=== PATIENT | female | born 1980 | race Caucasian/White ===

== ENCOUNTER 2017-10-25 12:44 | Emergency (ER) | payer BC, SELFPAY ==
[2017-10-25] VITALS (21 sets, daily range): BP systolic 103–128; BP diastolic 62–87; PULSE 82–111; RESP 17–28; TEMP 36.9–38.6; O2SAT 95–98
--- NOTE | 2017-10-25 12:59 | ED.GENADUL ---
Disposition Clinical Impression: Community acquired bacterial pneumonia, Cough, Pulmonary nodule Disposition: HOME Condition: Good Instructions: Community Acquired Pneumonia (ED), Acute Cough (ED) Additional Instructions: Please take your antibiotic as directed. Please drink 8-10 cups of water per day. If you notice any worsening of your symptoms, or any new symptoms such as vomiting, diarrhea, fever, chills, shortness of breath, chest pain, numbness, weakness, or fainting , please return immediately to the emergency department for reevaluation. Please follow up with your primary care provider as soon as possible for reassessment and reevaluation. As always, it was a pleasure participating in your medical care today. Please follow-up with your primary care provider in the next 6-8 weeks to get a repeat chest x-ray for the nodule in your left chest. Prescriptions: Azithromycin 250 mg PO DAILY #4 tablet Referrals: Santiago Johnson MD [Primary Care Provider] - Medical Decision Making - Medical Decision Making This is a 37-year-old female with a past medical history of occasional asthma, and hypothyroidism who presents for 1 day of fevers, chills, cough. She has systemic body aches. Physical exam demonstrates crackles in the left lower lung harvey. She is mildly tachycardic with a fever. She does have a little bit of a sore throat, but no severe erythema, or tonsillar exudate. We will evaluate for flu, and strep. The patient has no risk factors for pulmonary embolism. She is low risk on well's score. We will rehydrate, evaluate for infectious etiologies, and reassess. Patient is worried about her family's cardiac history, however she is low risk on the heart score with only a risk factor of mild obesity and family history, but no smoking history, or other cardiac risk factors. EKG 12: 58 Rate 99, RI 124, QTc 444, QRS 83, sinus rhythm, no ST elevations or depressions. No T wave inversions. No Q waves. 3: 20 p.m. I have been contacted by the radiologist, he does feel that there is a small nodule in the left lower lung. This could be infectious in etiology, but does require follow-up on a repeat 3-6 week x-ray. He would correlate well with an infectious etiology with the patient's fever, cough, and sore throat. I do feel that she would benefit from antibiotics. She has been given azithromycin here in the emergency department, and will be given azithromycin for home use. I had a long discussion regarding red flags, patient understands. I have extensively reviewed the treatment plan and discharge instructions with the patient. I have addressed all patient concerns at this time. The patient was made aware of what symptoms to monitor for that would warrant a return to the emergency department. Discussed the plan with the patient, they demonstrate verbal understanding and agreement with our assessment and plan at this time. History of Present Illness - General Chief complaint: Chest Pain Stated complaint: SORE THROAT Time Seen by Provider: 10/25/17 12:57 - History of Present Illness Initial comments: A 37-year-old female with a past medical history of asthma, and hypothyroidism who presents today for evaluation of fevers, chills, and cough starting yesterday. She states that she felt subjectively warm at home, has had a cough that is nonproductive, and his general malaise, and systemic body aches. She denies any headache, neck pain, vision changes, significant pleuritic chest pain, vomiting, diarrhea, rash, other sick contacts. She denies any exertional chest pain, neck pain or shoulder pain or arm pain. She states that there is no aggravating or relieving factors at this time. She is not on control. She does admit to surgery on her right elbow 30 years ago. Denies PE risk factors such as recent long car rides, immobilization, recent surgery, prior history of DVT or PE, family history of PE or DVT, morbid obesity, exogenous estrogen and smoking, hemoptysis, history of cancer. Patient has no other complaints at this time. She denies any tobacco or IV illicit drug use. Family history is positive for heart disease in the mid 40s. - Related Data Albuterol Sulfate [Albuterol Sulfate Hfa] 8.5 gm IH PRN 12/23/13 Levothyroxine Sodium 137 mcg PO DAILY 12/23/13 Norgestimate-Ethinyl Estradiol [Ortho Tri-Cyclen 28 Tablet] 1 tab PO DAILY 12/23/13 Budesonide/Formoterol Fumarate [Symbicort 160/4.5 Mcg Inhaler] 1 puff IH BID 05/17/14 Acetaminophen [Tylenol Extra Strength] 500 mg PO PRN PRN 06/23/15 Amphet Asp/Amphet/D-Amphet [Adderall Xr 20MG Capsule SA] 20 mg PO DAILY 09/02/16 Doxycycline [Vibramycin] 100 mg PO BID #28 cap 09/02/16 Lisdexamfetamine [Vyvanse] 50 mg PO DAILY 10/25/16 Phenazopyridine [Pyridium] 200 mg PO Q8H PRN #6 tab 10/25/16 Sulfameth/Trimeth Ds [Bactrim Ds Tablet] 1 each PO BID #6 tab 10/25/16 PredniSONE [Deltasone] 0 PO DAILY #24 tab-cap 09/10/17 Azithromycin 250 mg PO DAILY #4 tablet 10/25/17 Allergies Allergy/AdvReac Type Severity Reaction Status Date / Time poison lula extract Allergy Mild Anaphylaxsi Unverified 10/25/16 19:37 [Poison Lula Extract] s Review of Systems Other: 10 point review of systems was performed, pertinent positives and negatives are noted in the history of present illness. Past Medical History - Past Medical History Medical history: asthma hypothyroid Surgical history: non-contributory - Social History Alcohol use: occasionally Drug use: none General Exam - Other Other exam information: 1.Const: Well-nourished, Well-developed, appearing stated age 2.Eyes: PERRL, no conjunctival injection, and symmetrical lids. 3.ENT: Atraumatic external nose and ears. Moist MM. Neck: Symmetric, trachea midline, No thyromegaly. Minimal erythema in the posterior oropharynx. No tonsillar exudates. No significant cervical lymphadenopathy. 4.CVS: Tachycardia, +S1/S2, No murmurs or gallops. Peripheral pulses 2+ and equal in all extremities. Brisk capillary refill in all extremities. 5.RESP: Unlabored respiratory effort. No significant wheezes. Mild crackles in left lower lung harvey. No signs of respiratory distress. 6.GI: Soft, Nontender/Nondistended, No hepatosplenomegaly. No guarding or rebound. 7.MSK: Normocephalic/Atraumatic, Extremities w/o deformity or ttp No cyanosis or clubbing, Normal movement of all extremities. No calf tenderness. No unilateral or bilateral lower extremity swelling. 8.Skin: Warm, Dry. No rashes or lesions. 9.Neuro: household refrigerator mechanic II-XII grossly intact. Sensation grossly intact, no focal neurologic deficits. 10.Psych: (AAO) x3. Appropriate mood and affect Course Vital Signs - 24 hr 10/25/17 12:51 Temperature 38.6 C H Pulse 111 H Respiratory 20 Rate Blood Pressure 128/87 Pulse Oximetry 95
[2017-10-25 13:22] LABS: Abs Immature Grans 0.02 k/cumm (0.0-0.09); Absolute Basophil Count 0.02 k/cumm (0.0-0.2); Absolute Eosinophil Count 0.03 k/cumm (0.0-0.7); Absolute Lymphocyte Count 1.35 k/cumm (1.2-3.4); Absolute Monocyte Count 0.75 k/cumm (0.11-0.7); Absolute Neutrophil Count 6.12 k/cumm (1.2-6.7); Basophils % 0.2; Eosinophils % 0.4; HCT 41.1 % (36.0-46.0); HGB 13.7 g/dL (12.0-15.5); Immature Grans % 0.2; Lymphocytes % 16.3; Mean Corp. HGB Concentration 33.3 g/dL (32.0-36.0); Mean Corpuscular Hemoglobin 29.4 pg (27.0-33.0); Mean Corpuscular Volume 88.2 fL (80-95); Mean Platelet Volume 10.3 fL (8.0-11.0); Neutrophils % 73.9; Platelet Count 220 x1000/uL (130-400); RBC 4.66 m/cumm (4.00-5.20); RBC Distribution Width 13.2 % (11.7-14.6); White Blood Cell Count 8.29 k/cumm (4.4-10.8)
[2017-10-25 13:27] LABS: Lactate-non-spesis 1.8 mmol/L (0.6-1.4)
[2017-10-25] MEDS: Acetaminophen 500 MG TAB 1000 MG PO (13:30)
[2017-10-25] MEDS: Ketorolac 30 MG/ML VIAL IVP (13:31)
[2017-10-25 13:34] LABS: Bilirubin Negative (Negative); Blood Small (Negative); Clarity Clear; Glucose Negative (Negative); Ketones Negative (Negative); Leukocyte Esterase Trace (Negative); Nitrite Negative (Negative); Urobilinogen 0.2 EU/dL (Up TO 0.2)
[2017-10-25 13:44] LABS: ALT 35 U/L (12-78); AST 21 U/L (15-37); Albumin 3.6 g/dL (3.4-5.0); Alkaline Phosphatase 119 U/L (46-116); Anion Gap 9.7 mmol/L (3-11); BUN 8 mg/dL (7-18); Bilirubin, Total 0.4 mg/dL (0.2-1.0); CO2 25.3 mmol/L (21.0-32.0); CREATININE 0.74 mg/dL (0.55-1.02); Calcium 8.5 mg/dL (8.5-10.1); Chloride 99 mmol/L (98-107); Glucose 103 mg/dL (70-100); Potassium 3.2 mmol/L (3.5-5.1); Sodium 134 mmol/L (136-145); Total Protein 8.2 g/dL (6.4-8.2); Troponin I < 0.02 ng/mL (0.00-0.06)
[2017-10-25 13:44] LABS: Bacteria Moderate HPF (Negative); C & S Indicated? No/Sq. Contamination; Casts Negative LPF (Negative); Crystals Negative HPF (Negative); Epithelial Cells Moderate HPF (Negative); Mucus Moderate (Negative); RBC 0-2 (0-2)
--- NOTE | 2017-10-25 13:47 | DI.REPORT_ITS ---
SYMPTOM/DIAGNOSIS: CHEST PAIN PA AND LATERAL CHEST: A small region of increased density is projected beneath the left hilum and likely lies in the left lower lobe. This density could represent scarring or atelectasis, however, the possibility of a small pulmonary mass could not be excluded and further evaluation with chest CT is suggested. The lungs are otherwise unremarkable. The heart is not enlarged. Hilar vasculature, tracheal air column and mediastinum are intact. SUMMARY: A small region of atelectasis, scarring or possibly a small mass is identified in the left lung. Further evaluation with chest CT is suggested.
[2017-10-25 13:53] LABS: TSH 0.22 uIU/mL (0.358-3.74)
[2017-10-25] MEDS: Normal Saline 1,000 ML 1000 ML IV (14:59)
[2017-10-25] MEDS: AZITHROMYCIN 500 MG in Normal Saline 250 ML 250 MG IVPB (14:59)
[2017-10-25] MEDS: Potassium Chloride 20 MEQ TABCR 40 MEQ PO (15:07)
== END 2017-10-25 16:14 | disposition home or self-care (01) ==
PROVIDERS: Emergency Provider Student in an Organized Health Care Education/Training Program; PCP General Practice
DX: J15.9 Unspecified bacterial pneumonia (principal); R91.1 Solitary pulmonary nodule; R00.2 Palpitations; J02.9 Acute pharyngitis, unspecified; Z82.49 Family history of ischemic heart disease and other diseases of the circulatory system
CPT/HCPCS: 36415; 80053; 87040; 87449; 87880; 99285; 71046; 81003; 81015; 83605; 84443; 84484; 85025; J0456; J1885

== ENCOUNTER 2017-10-27 10:32 | Outpatient (CLI) | payer BC, SELFPAY ==
[2017-10-27 11:14] LABS: HCT 39.2 % (36.0-46.0); HGB 12.9 g/dL (12.0-15.5); Mean Corp. HGB Concentration 32.9 g/dL (32.0-36.0); Mean Corpuscular Volume 88.1 fL (80-95); Mean Platelet Volume 10.3 fL (8.0-11.0); Platelet Count 208 x1000/uL (130-400); RBC 4.45 m/cumm (4.00-5.20); White Blood Cell Count 5.92 k/cumm (4.4-10.8)
[2017-10-27 11:40] LABS: Potassium 4.1 mmol/L (3.5-5.1)
[2017-10-27 11:52] LABS: HCG Quant, Pregnancy < 1 mIU/mL (1-3)
--- NOTE | 2017-10-27 12:10 | DI.REPORT_ITS ---
SYMPTOM/DIAGNOSIS: DECREASED APPETITE, WEIGHT LOSS, R/O PNEUMONIA, MASS CHEST X-RAY: PA, lateral. Comparison 10/25/17 The infiltrate seen in the left lower lobe has progressed since the prior examination. The findings are suspicious for pneumonia. The lungs are otherwise clear. No effusions or pneumothoraces are identified. Heart size and pulmonary vasculature are within normal limits. The bones are intact. IMPRESSION: Worsening left lower lobe pneumonia. A chest x-ray is recommended following treatment to document complete resolution of the infiltrate.
== END 2017-10-27 10:33 ==
PROVIDERS: PCP General Practice; Visit Provider General Practice
DX: J18.9 Pneumonia, unspecified organism (principal); R63.4 Abnormal weight loss; R63.0 Anorexia; R50.9 Fever, unspecified; E87.6 Hypokalemia
CPT/HCPCS: 36415; 85027; 71046; 84132; 84702

== ENCOUNTER 2018-02-22 16:57 | Outpatient (CLI) | payer BC, SELFPAY ==
[2018-02-23 12:18] LABS: HCG Quant, Pregnancy < 1 mIU/mL (1-3); TSH 0.63 uIU/mL (0.358-3.74)
== END 2018-02-22 17:17 ==
PROVIDERS: PCP General Practice; Visit Provider General Practice
DX: Z32.00 Encounter for pregnancy test, result unknown (principal)
CPT/HCPCS: 84443; 84702

== ENCOUNTER 2018-03-01 14:30 | Outpatient (CLI) | payer BC, SELFPAY ==
[2018-03-01 16:04] LABS: HCG Quant, Pregnancy < 1 mIU/mL (1-3)
== END 2018-03-01 14:50 ==
PROVIDERS: PCP General Practice; Visit Provider Nurse Practitioner Women's Health
DX: N91.2 Amenorrhea, unspecified (principal)
CPT/HCPCS: 36415; 84702

== ENCOUNTER 2018-12-03 18:30 | Outpatient (REF) | payer BC, SELFPAY | END 2018-12-03 18:50 | LOC: LBN 18:30 | PROVIDERS: PCP General Practice; Visit Provider General Practice | DX: N39.0 Urinary tract infection, site not specified (principal) | CPT/HCPCS: 87086 ==

== ENCOUNTER 2019-01-14 15:32 | Outpatient (CLI) | payer BC, SELFPAY ==
[2019-01-14 15:51] LABS: HCT 39.2 % (36.0-46.0); HGB 12.9 g/dL (12.0-15.5); Mean Corp. HGB Concentration 32.9 g/dL (32.0-36.0); Mean Corpuscular Hemoglobin 29.5 pg (27.0-33.0); Mean Corpuscular Volume 89.5 fL (80-95); Mean Platelet Volume 10.4 fL (8.0-11.0); Platelet Count 326 x1000/uL (130-400); RBC 4.38 m/cumm (4.00-5.20); RBC Distribution Width 13.3 % (11.7-14.6); White Blood Cell Count 9.12 k/cumm (4.4-10.8)
[2019-01-14 16:46] LABS: TSH 0.71 uIU/mL (0.36-3.74)
== END 2019-01-14 15:52 ==
PROVIDERS: PCP General Practice; Visit Provider General Practice
DX: R53.83 Other fatigue (principal); R50.9 Fever, unspecified; E03.9 Hypothyroidism, unspecified
CPT/HCPCS: 36415; 85027; 84443

== ENCOUNTER 2019-04-12 15:12 | Outpatient (CLI) | payer BC, SELFPAY ==
[2019-04-12 17:56] LABS: HCG Quant, Pregnancy 2804 mIU/mL (1-3)
[2019-04-14 18:01] LABS: Progesterone 8.8 ng/mL (See Table)
== END 2019-04-12 15:32 ==
PROVIDERS: PCP Nurse Practitioner; Visit Provider Obstetrics & Gynecology
DX: O20.0 Threatened abortion (principal)
CPT/HCPCS: 36415; 84144; 84702

== ENCOUNTER 2019-04-30 02:16 | Outpatient (CLI) | payer BC, SELFPAY ==
[2019-04-30 14:26] LABS: Calculated LDL 134 mg/dL (<100); Cholesterol 203 mg/dL (<200); HDL Cholesterol 53 mg/dL (40-60); Triglyceride 80 mg/dL (<150)
== END 2019-04-30 02:36 ==
PROVIDERS: PCP Nurse Practitioner; Visit Provider Nurse Practitioner
DX: Z13.6 Encounter for screening for cardiovascular disorders (principal)
CPT/HCPCS: 36415; 80061

== ENCOUNTER 2019-06-03 15:47 | Outpatient (REF) | payer BC, SELFPAY | END 2019-06-03 16:07 | LOC: LBN 15:47 | PROVIDERS: PCP Nurse Practitioner; Visit Provider Internal Medicine | DX: J02.9 Acute pharyngitis, unspecified (principal) | CPT/HCPCS: 87070 ==

== ENCOUNTER 2020-12-15 03:46 | Outpatient (CLI) | payer BC, SELFPAY ==
[2020-12-15 13:23] LABS: Hemoglobin A1C 6.1 % (<5.7)
[2020-12-15 13:27] LABS: TSH 0.19 uIU/mL (0.36-3.74)
[2020-12-16 17:35] LABS: FREE T4 1.24 ng/dL (0.76-1.46)
== END 2020-12-15 03:47 | disposition home or self-care (01) ==
LOC: LOS 03:47
PROVIDERS: Nurse Practitioner Family; PCP Nurse Practitioner; Visit Provider Nurse Practitioner
DX: Z13.1 Encounter for screening for diabetes mellitus; E03.9 Hypothyroidism, unspecified
CPT/HCPCS: 36415; 83036; 84439; 84443

== ENCOUNTER → 2020-12-28 00:53 | Outpatient (CLI) | payer BC, SELFPAY ==
--- NOTE | 2020-12-28 06:45 | DI.RAD_ITS ---
Exam(s) RF BARIUM SWALLOW EXAM: RF BARIUM SWALLOW CLINICAL HISTORY: dysphagia,r13.10 TECHNIQUE: COMPARISON: CR CHEST 2 VIEWS PA,LAT from 10/27/2017 FINDINGS: Preliminary films of the chest and neck show no gross soft tissue abnormality of the tracheolaryngeal structures. Lungs are clear and well expanded. No pleural effusion. No cardiomegaly. Barium was ingested and showed grossly unremarkable hypo pharyngeal motility. Esophageal mucosa appe ars intact throughout, no evidence of obstruction. No focal lesion identified. IMPRESSION: Negative barium swallow. RADIATION DOSE DELIVERED: Total DLP
--- NOTE | 2020-12-28 06:45 | DI.MAMMO_ITS ---
Exam(s) MAMMO SCREENING EXAM: MAMMO SCREENING CLINICAL HISTORY: screening,z12.39 TECHNIQUE: Mammograms were interpreted according to the usual protocol including computer analysis w Gigabit Squared CAD system, tomosynthesis and C-view imaging. COMPARISON: FINDINGS: The breasts are heterogeneously dense. The patient is reportedly lactating. There is an area of vaguely masslike radiodensity measuring up to 4-5 cm in diameter in the upper out er quadrant of left breast. This may represent normal asymmetric breast tissue, however the possibil ity of fluid collection or mass is not excluded in this area. Additional evaluation with ultrasound of the left breast recommended. No additional mass or clumped microcalcification identified in either breast. Today's examination is a baseline examination. IMPRESSION: Additional evaluation of the left breast with an ultrasound targeted to the upper-outer quadrant is s uggested for evaluation of a vaguely masslike radiodensity seen on this baseline examination. BI-RADS Category 0 - Assessment Incomplete: Need additional imaging evaluation Breast Density - Category C - Heterogeneously dense
[2020-12-28] MEDS: Barium Sulfate 60% W/V 355 ML BTL PO (09:50)
== END ==
PROVIDERS: PCP Nurse Practitioner; Visit Provider Nurse Practitioner
DX: Z12.31 Encounter for screening mammogram for malignant neoplasm of breast (principal); R13.10 Dysphagia, unspecified; R92.8 Other abnormal and inconclusive findings on diagnostic imaging of breast
CPT/HCPCS: 77063; 77067; 74221

== ENCOUNTER 2021-04-08 14:01 | Outpatient (REF) | payer BC, SELFPAY ==
[2021-04-10 14:00] LABS: COVID-19 RT-PCR UVMMC Result Positive (Negative)
== END 2021-04-08 14:02 | disposition home or self-care (01) ==
LOC: LBN 14:01
PROVIDERS: PCP Nurse Practitioner; Visit Provider Nurse Practitioner Family
DX: Z20.822 Contact with and (suspected) exposure to COVID-19 (principal)
CPT/HCPCS: U0003

== ENCOUNTER 2021-06-09 01:39 | Outpatient (CLI) | payer BC, SELFPAY ==
[2021-06-09 11:40] LABS: Source Nasal/Nares
[2021-06-09 14:25] LABS: COVID-19 PCR Negative (Negative)
== END 2021-06-09 01:40 | disposition home or self-care (01) ==
LOC: LBO 01:39
PROVIDERS: PCP Nurse Practitioner; Visit Provider Surgery
DX: Z20.822 Contact with and (suspected) exposure to COVID-19 (principal)
CPT/HCPCS: 87635

== ENCOUNTER 2021-07-01 15:11 | Outpatient (REF) | payer BC, SELFPAY ==
[2021-07-03 10:51] LABS: COVID-19 RT-PCR UVMMC Result Negative (Negative)
== END 2021-07-01 15:12 | disposition home or self-care (01) ==
LOC: LBN 15:11
PROVIDERS: PCP Nurse Practitioner; Visit Provider Physician Assistant
DX: Z20.822 Contact with and (suspected) exposure to COVID-19 (principal)
CPT/HCPCS: U0003

== ENCOUNTER 2021-10-11 17:00 | Outpatient (REF) | payer OTHER, SELFPAY ==
[2021-10-11 20:45] LABS: Abs Immature Grans 0.05 10^3/uL (0.0-0.06); Absolute Basophil Count 0.05 10^3/uL (0.0-0.2); Absolute Eosinophil Count 0.32 10^3/uL (0.0-0.7); Absolute Lymphocyte Count 2.82 10^3/uL (1.2-3.4); Absolute Monocyte Count 0.96 10^3/uL (0.1-0.8); Absolute Neutrophil Count 3.96 10^3/uL (1.2-6.7); Basophils % 0.6; Eosinophils % 3.9; HCT 39.7 % (36.0-46.0); HGB 13.4 g/dL (11.2-15.7); Immature Grans % 0.6; Lymphocytes % 34.6; MCH 28.8 pg (27.0-33.0); MCHC 33.8 % (32.0-36.0); MCV 85 fL (80-95); MPV 11.1 fL (8.0-11.0); Monocytes % 11.8; Neutrophils % 48.5; Platelet Count 300 10^3/uL (130-400); RBC 4.66 10^6/uL (3.93-5.22); RDW 13.2 % (11.7-14.6); RDW-SD 41.7 fL; WBC 8.16 10^3/uL (4.4-10.8)
[2021-10-11 20:46] LABS: ESR 21 mm/hr (0-20)
[2021-10-11 21:06] LABS: ALT 41 U/L (14-59); AST 20 U/L (15-37); Albumin 3.8 g/dL (3.4-5.0); Alkaline Phosphatase 108 U/L (46-116); Anion Gap 7.5 mmol/L (3-11); BUN 15 mg/dL (7-18); Bilirubin, Total 0.5 mg/dL (0.2-1.0); C-Reactive Protein 1.24 mg/dL (0.0-0.3); CO2 26.5 mmol/L (21.0-32.0); CREATININE 0.7 mg/dL (0.55-1.02); Calcium 8.9 mg/dL (8.5-10.1); Chloride 103 mmol/L (98-107); Glucose 99 mg/dL (74-106); Potassium 4.2 mmol/L (3.5-5.1); Sodium 137 mmol/L (136-145); TSH (W/Ref FT4) 4.53 uIU/mL (0.36-3.74); Total Protein 7.2 g/dL (6.4-8.2)
[2021-10-11 21:36] LABS: FREE T4 1.11 ng/dL (0.76-1.46)
[2021-10-12 12:30] LABS: C Diff PCR Negative (Negative)
[2021-10-12 21:50] LABS: Campylobacter PCR Negative (Negative); Salmonella PCR Negative (Negative); Shiga Toxin PCR Negative (Negative); Shigella/Enteroinvasive Ecoli Negative (Negative)
== END 2021-10-11 17:01 | disposition home or self-care (01) ==
LOC: LBN 17:00
PROVIDERS: PCP Nurse Practitioner; Visit Provider Nurse Practitioner Family
DX: R19.7 Diarrhea, unspecified (principal)
CPT/HCPCS: 80053; 85652; 87493; 87505; 84439; 84443; 85025; 86140; 87177

== ENCOUNTER 2021-10-12 15:58 | Outpatient (REF) | payer BC, SELFPAY | END 2021-10-12 15:59 | disposition home or self-care (01) | LOC: LBN 15:58 | PROVIDERS: PCP Nurse Practitioner; Visit Provider Nurse Practitioner Family ==

== ENCOUNTER 2021-11-19 01:40 | Outpatient (CLI) | payer OTHER, SELFPAY ==
--- OUTSIDE RECORDS SUMMARY | 2021-11-19 01:42 | XMS_ITS | Encounter Summary ---
:1980 Author Organization [facility] Address [address] [place] [address] Care Team Providers Name Role Phone Unknown, Provider Primary Care Provider Encounter Details Date Type Department Care Team Description 10/12/2021 Lab Requisition [facility] Outr Resulting Lab, Pathology & Laboratory Provider [facility] [address] [place] [address] Social History Tobacco Use Types Packs/Day Years Used Date Never Assessed Sex Assigned at Date Recorded Not on file documented as of this encounter Plan of Treatment Not on filedocumented as of this encounter Procedures Procedure Name Priority Date/Time Associated Diagnosis Comme nts OVA/PARASITE EXAM Routine 10/11/2021 19:20 Result s for this EDT procedure are i n the results section. documented in this encounter Results OVA/PARASITE EXAM (10/11/2021 19:20 EDT) Pathologist Sig nature Parasite No ova and parasites [facility] seen. LABORATORY SERVICES Specimen Feces - Specimen from rectum (specimen) Narrative [facility] - 10/13/2021 12:51 EDT (If Cryptosporidium, Cyclospora, or Micr osporidium are suspected, specific tests must be requested.) Single negative specimen does not rule out the possibility of a parasitic infection. Performing Organization Address City/State/ZIP Code Phon e Number [facility] [address] [place] [address] SERVICES documented in this encounter Visit Diagnoses Not on filedocumented in this encounter Care Teams Nurse Reviewer Relationship Specialty Start Date End Date Unknown, Provider, PCP - General 04/21/14 documented as of this encounter
--- OUTSIDE RECORDS SUMMARY | 2021-11-19 01:42 | XMS_ITS | Encounter Summary ---
:1980 Author Organization [facility] Address [address] [place] [address] Care Team Providers Name Role Phone Unknown, Provider Primary Care Provider Encounter Details Date Type Department Care Team Description 10/12/2021 Lab Requisition [facility] Outr Resulting Lab, Pathology & Laboratory Provider [facility] [address] [place] [address] Social History Tobacco Use Types Packs/Day Years Used Date Never Assessed Sex Assigned at Date Recorded Not on file documented as of this encounter Plan of Treatment Not on filedocumented as of this encounter Procedures Procedure Name Priority Date/Time Associated Diagnosis Comme nts FECAL BACTERIAL Routine 10/11/2021 16:25 Results for this PATHOGENS BY PCR EDT procedure a re in the results section. documented in this encounter Results FECAL BACTERIAL PATHOGENS BY PCR (10/11/2021 16:25 EDT) Pathologist Sig nature Salmonella PCR Negative Negative [facility] Shigella/Enteroinvasive Negative Negative [facility] LAB CAMPYLOBACTER PCR Negative Negative [facility] Shiga Toxin PCR Negative Negative [facility] Specimen Feces - Specimen from rectum (specimen) Performing Organization Address City/State/ZIP Code Phon e Number [facility] [address] [place] [address] SERVICES documented in this encounter Visit Diagnoses Not on filedocumented in this encounter Care Teams Aircrewman Relationship Specialty Start Date End Date Unknown, Provider, PCP - General 04/21/14 documented as of this encounter
--- OUTSIDE RECORDS SUMMARY | 2021-11-19 01:43 | XMS_ITS | Encounter Summary ---
:1980 Author Organization [facility] Address [address] [place] [address] Care Team Providers Name Role Phone Unknown, Provider Primary Care Provider Encounter Details Date Type Department Care Team Description 04/16/2014 Results Only [facility] Martine Curry, GUEST RELATIONS AGENT [phone] [address] [facility] GAUDENCIO,[place], [place] [address] (Wo rk) Social History Tobacco Use Types Packs/Day Years Used Date Never Assessed Sex Assigned at Date Recorded Not on file documented as of this encounter Plan of Treatment Not on filedocumented as of this encounter Procedures Procedure Name Priority Date/Time Associated Diagnosis Comme nts PAP TEST- RESULT Routine 04/16/2014 0:00 EST Resu lts for this ONLY procedure are i n the results section. documented in this encounter Results PAP TEST- RESULT ONLY (04/16/2014 0:00 EST) Pathology Report: CYTOPATHOLOGY REPORT [facility] Reports generated via electronic interface contain sendy ginal data; SERVICES however they are lacking the format of the original re port. Caution should be taken when reading/interpreting unfo rmatted reports. Name: ? STEFANI SPICER ? Accession #: ? [id number] ? : ? 1980 (Age: 33) ??F ?Collect Da te: ? 04/16/2014 ? Location: ? [facility] ? Receive Date: ? 015 ? Provider: MARTINE CURRY GUEST RELATIONS AGENT Copy to: JOSE GUERRERO ? Final Report SPECIMEN ADEQUACY ? Satisfactory for Evaluation - transformation zone component present GENERAL CATEGORIZATION ? Negative for Intraepithelial Lesion or Malignan cy INTERPRETATION ? Reactive cellular ricky nges associated with inflammation present (includes repair). Hormonal/Contraceptive status: Yes Specimen/Source: ??Pap Test, Cervix/Endocervix, ThinPr ep Imaging System with manual evaluation Document reviewed and electronically signed by: ? CHRISTINA BANDA MD ? Report ??Date: 05/01/2014 14:42 HPV with Pap Test ? Date Ordered: ? 05/01/2014 ? Status: ?? Signed Out ?Date Complete: ? 05/02/2014 ? By: ??S ystem Interface ? Date Reported: ? 05/02/2014 ? Interpretation RESULT: Negative for HPV. No E6 or E7 mRNA is detected from HPV types 16,18,31,3 3,35, 39,45,51,52,56,58,59,66, and 68 by office automation technician media martine amplification. Comments Document reviewed and electronically signed by: ? System Interface ? Report date: 05/02/2014 By the signature above, the attending physician certif ies that he/she has personally conducted a gross and/or microscopic examin ation of the described specimens and rendered or confirmed the above diagnosi s. End of Report Specimen Performing Organization Address City/State/ZIP Code Phon e Number [facility] [address] [place] [address] SERVICES documented in this encounter Visit Diagnoses Not on filedocumented in this encounter Care Teams Ndt Inspector Relationship Specialty Start Date End Date Unknown, Provider, PCP - General 04/21/14 documented as of this encounter
--- OUTSIDE RECORDS SUMMARY | 2021-11-19 01:43 | XMS_ITS | Encounter Summary ---
:1980 Author Organization [facility] Address [address] [place] [address] Care Team Providers Name Role Phone Unknown, Provider Primary Care Provider Encounter Details Date Type Department Care Team Description 04/09/2021 Lab Requisition [facility] Outr Resulting Lab, Pathology & Laboratory Provider [facility] [address] [place] [address] Social History Tobacco Use Types Packs/Day Years Used Date Never Assessed Sex Assigned at Date Recorded Not on file documented as of this encounter Plan of Treatment Not on filedocumented as of this encounter Procedures Procedure Name Priority Date/Time Associated Diagnosis Comme nts COVID-19 TEST [facility] Today 04/08/2021 13:20 LAB PCR EST COVID-19 TESTING Routine 04/08/2021 13:20 Results for this EST procedure are i n the results section. documented in this encounter Results COVID-19 TEST [facility] LAB PCR (04/08/2021 13:20 EST) Specimen Swab Performing Organization Address City/State/ZIP Code Phon e Number [facility] [address] [place] [address] SERVICES (ABNORMAL) COVID-19 TESTING (04/08/2021 13:20 EST) COVID-19 rt-PCR Positive (AA) Negative [facility] Result Comment: LABORATORY This test has not been FDA c leared or approved. This test has been authorized by FDA under an EUA for use by authorized laboratories. This test has been authorized only for detection of nucleic acid fro SERVICES m 2019-nCoV, not for any oth er viruses or pathogens. This test is only authorized for the duration of the declaration that circumstances exist justifying the authorization of emergency use of in vitro d iagnostic tests for detectio n and/or diagnosis of 2019-nCoV under section 564(b)(1) of Act, 21 U.S.C ?? 360bbb-3(b) (1), unless the authorization is terminated or revoked sooner. Testing was performed using the breonna SARS-CoV-2 assay ([employer] on the Breonna 6800 System Performing Lab [facility] [address] [facility] Lab [facility] SERVICES Specimen Swab Performing Organization Address City/State/ZIP Code Phon e Number [facility] [address] [place] [address] SERVICES documented in this encounter Visit Diagnoses Not on filedocumented in this encounter Additional Health Concerns Infection Onset Date Last Indicated Resolved Time COVID-19 04/08/2021 04/08/2021 04/28/2021 22:15 EST documented as of this encounter Care Teams Manager Clinical Pharmacy Relationship Specialty Start Date End Date Unknown, Provider, PCP - General 04/21/14 documented as of this encounter
--- OUTSIDE RECORDS SUMMARY | 2021-11-19 01:43 | XMS_ITS | Encounter Summary ---
:1980 Author Organization [facility] Address [address] [place] [address] Care Team Providers Name Role Phone Unknown, Provider Primary Care Provider Encounter Details Date Type Department Care Team Description 07/02/2021 Lab Requisition [facility] Outr Resulting Lab, Pathology & Laboratory Provider [facility] [address] [place], [place] [address] Social History Tobacco Use Types Packs/Day Years Used Date Never Assessed Sex Assigned at Date Recorded Not on file documented as of this encounter Plan of Treatment Not on filedocumented as of this encounter Procedures Procedure Name Priority Date/Time Associated Diagnosis Comme nts COVID-19 TEST [facility] Today 07/01/2021 10:00 LAB PCR EDT COVID-19 TESTING Routine 07/01/2021 10:00 Results for this EDT procedure are i n the results section. documented in this encounter Results COVID-19 TEST [facility] PCR (07/01/2021 10:00 EDT) Specimen Swab Performing Organization Address City/State/ZIP Code Phon e Number [facility] [address] [place] [address] SERVICES COVID-19 TESTING (07/01/2021 10:00 EDT) COVID-19 rt-PCR Negative Negative [facility] Result Comment: CENTER LABORATORY This test has not been FDA [...] the authorization is terminated or revoked sooner. Negative results do not prec lude 2019-nCoV infection and should not be used as the sole basis for treatment or other patient management decisions. Negative results must be combined with clinical observa tions, patient history, and epidemiological informatio n. Testing was performed using the breonna SARS-CoV-2 assay ([employer] on the Breonna 6800 System Performing Lab [address] [address] [facility] Lab [facility] SERVICES Specimen Swab Performing Organization Address City/State/ZIP Code Phon e Number [facility] [address] [place] [address] SERVICES documented in this encounter Visit Diagnoses Not on filedocumented in this encounter Care Teams Aircraft Sales Representative Relationship Specialty Start Date End Date Unknown, Provider, PCP - General 04/21/14 documented as of this encounter
[2021-11-19 10:43] LABS: Source Nasal/Nares
[2021-11-19 16:54] LABS: COVID-19 PCR Negative (Negative)
== END 2021-11-19 01:41 | disposition home or self-care (01) ==
LOC: LBO 01:40
PROVIDERS: PCP Nurse Practitioner; Visit Provider Surgery
DX: Z01.818 Encounter for other preprocedural examination (principal); Z20.822 Contact with and (suspected) exposure to COVID-19
CPT/HCPCS: 87635

== ENCOUNTER 2021-11-23 06:20 | Day surgery (SDC) | payer OTHER, SELFPAY ==
--- NOTE | 2021-11-22 18:08 | W.ANESPRE ---
General Info Date of Service Date Performed: 11/18/21 Height: 1.7 m Weight: 104.553 kg Body Mass Index (BMI): 36.1 Surgical Procedure: Operation Date: 11/23/21 07:35 Proposed Procedure Side Surgeon p Colonoscopy w/Biopsies Xiomara Quintanilla, DO Meds Allergies and Home Medications Allergies Allergy/AdvReac Type Severity Reaction Status Date / Time poison lula extract Allergy Mild Anaphylaxsi Verified 11/23/21 06:46 [Poison Lula Extract] s hair dye Allergy Intermediate Uncoded 11/23/21 06:46 Home Medication Medication Instructions Recorded cetirizine 10 mg capsule (Zyrtec) 10 mg PO DAILY 04/05/19 albuterol sulfate 90 mcg/actuation 2 puff inhalation 6XD PRN 11/20/20 aerosol inhaler (ProAir HFA) shortness of breath or wheezing #18 grams budesonide-formoterol HFA 160 2 puff inhalation Q12H #10.2 grams 11/20/20 mcg-4.5 mcg/actuation aerosol inhaler (Symbicort) epinephrine 0.3 mg/0.3 mL 0.3 mg (0.3 mL) IM ONCE #1 ea 11/20/20 injection, auto-injector (EpiPen) levothyroxine 125 mcg capsule 125 mcg PO DAILY #1 cap 02/08/21 omeprazole 20 mg capsule,delayed 20 mg PO DAILY 02/08/21 release prenat.vits,radha,aof-ittq-fgbha 1 tab PO DAILY 02/08/21 biotin 2,500 mcg capsule 2,500 mcg PO DAILY 06/03/21 cholecalciferol (vitamin D3) 25 25 mcg PO DAILY 06/03/21 mcg (1,000 unit) capsule fluticasone propionate 50 2 spray intranasal DAILY #16 grams 09/13/21 mcg/actuation nasal spray,suspension (Allergy Relief (fluticasone)) Current Visit Medications: Current Medications Generic Name Dose Route Start Last Admin Trade Name Freq PRN Reason Stop Dose Admin Ringer's Solution 1,000 mls @ 80 mls/hr 11/23/21 06:00 IV 12/19/21 23:59 INFUSION JUAN IV Miscellaneous Supplies 1 each 11/23/21 06:00 Iv Access IV 12/19/21 23:59 DIRECTED JUAN Sodium Chloride 0 ml 11/23/21 06:00 Normal Saline Flush 10 Ml Syr IV 12/19/21 23:59 PRN PRN Sodium Chloride 0 ml 11/23/21 06:00 Normal Saline 10 Ml Vial IJ 12/19/21 23:59 DIRECTED PRN Sterile Water 0 ml 11/23/21 06:00 Water,Injection,Sterile 10 Ml Vial IJ 12/19/21 23:59 DIRECTED PRN PFSH Active Problems Active Problems: Problem Status Onset Code Screening for colon cancer Z12.11 Chronic GERD K21.9 Family history of secondary colorectal cancer Z80.0 Diarrhea R19.7 COVID-19 ~04/08/21 U07.1 Prediabetes R73.03 Dysphagia R13.10 Bilateral tinnitus H93.13 Carpal tunnel syndrome G56.00 Decreased hearing H91.90 Z34.90 ADHD F90.9 Hypothyroid E03.9 Asthma J45.909 Medical History Medical History Abnormal auditory perception (05/21/15) Allergic reaction (12/23/13) Allergic rhinitis (11/11/13) Allergic rhinitis due to other allergen (12/23/13) Asthma Breathing difficulty (11/11/13) Postnasal drip (11/11/13) Surgical History Surgical History History of open reduction and internal fixation (ORIF) procedure right elbow Tobacco Smoking/Tobacco Use Status: Never Passive smoking exposure: Yes Second hand exposure: Yes Alcohol Alcohol Intake: former Substance Use Substance use: Never Substance use type: does not use Vital Signs and Lab Results Vital Signs Most Recent Vital Signs in EMR: Temp Pulse Resp BP Pulse Ox 36.6 C 73 16 120/87 96 11/23/21 06:39 11/23/21 06:39 11/23/21 06:39 11/23/21 06:39 11/23/21 06:39 Lab Results Blood Type / Crossmatch: No Data to Display Complete Blood Count: No Data to Display Complete Metabolic Panel: No Data to Display Liver Function Panel: No Data to Display Coagulation Panel: No Data to Display Cardiac Panel: No Data to Display Arterial Blood Gas: No Data to Display Venous Blood Gas: No Data to Display Pancreas Panel: No Data to Display Thyroid Panel: No Data to Display Infectious Disease: Coronavirus (COVID-19)(PCR) Negative (Negative) 11/19/21 08:35 Coronavirus 2019 Source Nasal/Nares 11/19/21 08:35 Blood Cultures: No Data to Display Toxicology Panel: No Data to Display Panel: No Data to Display Anesthesia Assessment and Plan Anesthesia History Personal History: No History of Anesthesia Complications and PONV Family History: No Family History of Anesthesia Complications Exercise Tolerance Exercise Tolerance: Metabolic Equivalents>4 Pertinent Negatives Pertinent Negatives: No Symptoms of GERD Cardiac & Pulmonary Exam Cardiac Exam: Normal S1/S2 Heart Sounds Pulmonary Exam: Clear Bilateral Breath Sounds Implantable Cardiac Device Does patient have a Pacemaker or an ICD?: No Airway Exam Known Difficult Airway: No Mallampati Class: 1 Mouth Opening: Normal (> 3cm) Thyromental Distance: Greater than 3 cm Neck Range of Motion: Full ROM Neck Circumference: Normal Teeth Condition: Normal Dentition ASA Classification ASA Score: ASA 2 Emergency Case?: No NPO Status NPO Status: NPO Clears >2 hours, Solids >8 hours Status Status: Negative HCG Anesthesia Plan Resuscitation Status: Full Code Anesthesia Technique: General Anesthesia Airway Planned: Natural Airway Monitors Used: Standard Monitors Preoperative Comments:: 41 to female for colo. Sig PMHx: GERD (omeprazole), ADHD, hypothyroid (on replacement), asthma (albuterol, symbicort). appears extremely anxious, with very nervous questioning.
[2021-11-23 06:39] VITALS: BP 120/87; PULSE 73; RESP 16; TEMP 36.6; O2SAT 96
[2021-11-23] MEDS: Lactated Ringers 1,000 ML 80 ML IV (07:16)
--- NOTE | 2021-11-23 08:30 | BOWEL_PTH ---
PATIENT: Fatemeh Walden LOC: [facility] U#:[id number] AGE/SX: 41/F ROOM: RE11/23/[address]: Xiomara Quintanilla : 1980 BED: DIS: 11/23/2021 SPEC #: [id number] RECD: 11/23/21 12:31 STATUS: LEVI Sonny #: [id number] TOMMY: 11/23/21 08:[address]: Xiomara Quintanilla DEPT: Surgical Specimen RECD BY: Clari Dent ENTERED: 11/23/21 12:33 SP TYPE: Bowel OTHR DR: Wen Stock, PhD [employer] Tissues: 1 - BIOPSY BOWEL 2 - BIOPSY BOWEL 3 - BIOPSY BOWEL 4 - BIOPSY BOWEL Procedures: GROSS AND MICRO LEVEL 4 Comments: [id number]
[2021-11-23 08:44] VITALS: BP 106/72; PULSE 74; RESP 14; TEMP 36.1; O2SAT 96
--- NOTE | 2021-11-23 09:00 | PDOC.DSDIS_ITS ---
Discharge Plan Disposition Patient Disposition: HOME Condition: Good Discharge Details Reason For Visit: colon scope Attending Provider: Xiomara Quintanilla Primary Care Provider: Wen Stock Home Meds and New Rx's Prescriptions: Continued albuterol sulfate [ProAir HFA] 90 mcg/actuation HFA aerosol inhaler 2 puff IH 6XD PRN (Reason: shortness of breath or wheezing) Qty: 18 0RF budesonide-formoterol [Symbicort] 160-4.5 mcg/actuation HFA aerosol inhaler 2 puff IH Q12H Qty: 10.2 11RF epinephrine [EpiPen] 0.3 mg/0.3 mL auto-injector 0.3 mg IM ONCE Qty: 1 0RF prenat.vits,radha,iwt-astn-tgxmm Tablet 1 tab PO DAILY omeprazole 20 mg capsule,delayed release(DR/EC) 20 mg PO DAILY levothyroxine 125 mcg capsule 125 mcg PO DAILY Qty: 1 0RF cholecalciferol (vitamin D3) 25 mcg (1,000 unit) capsule 25 mcg PO DAILY biotin 2,500 mcg capsule 2,500 mcg PO DAILY Zyrtec 10 mg capsule 10 mg PO DAILY fluticasone propionate [Allergy Relief (fluticasone)] 50 mcg/actuation spray,suspension 2 spray intranasal DAILY Qty: 16 6RF Rx Instructions: administer into each nostril Discontinued bisacodyl [Dulcolax (bisacodyl)] 5 mg tablet,delayed release (DR/EC) 5 mg PO ONCE Qty: 4 0RF Rx Instructions: Take according to provider's instructions for colonoscopy prep. polyethylene glycol 3350 17 gram/dose powder 17 g PO ONCE Qty: 238 0RF Rx Instructions: To be taken as directed by prescriber's office for colonoscopy prep. Discharge Instructions Additional Instructions: DSU Colonoscopy Post- Op Instructions Instructions for Everyone who is given Anesthesia: For your safety, please do the following for the next twenty-four (24) hours: *Do Not operate a motor vehicle (car, truck, motorcycle, etc.) *Do Not drink alcoholic beverages or use any recreational drugs for the first 24 hours or while taking pain medications. The medications in your body may have a reaction that can be dangerous. *Do Not make any important decisions or sign any important papers. Findings: grossly normal start fiber program Follow up: 2-3 weeks for results of biopsy's 1. No lifting over 20 pounds or strenuous activity for the first 24 hours after your procedure. After 24 hours there are no restrictions on your activity but you may feel fatigued for a few days. 2. After you arrive home you may have a light meal and return to your normal diet as you can tolerate it without feeling sick to your stomach. 3. You may have a bloated, gaseous feeling in your belly (abdomen) after a colonoscopy. Passing gas and belching will help. Walking or lying down on your left side with your knees flexed may relieve the discomfort. Call the office at [phone] (Office) or [phone] (Hospital) right away if you notice any of the following: a.Vomiting of blood or ?coffee ground stools?. b.Rectal bleeding 1Tbsp, blood clots or continuous bleeding. c.Severe belly (abdominal) pain. d.A hard distended belly (abdomen) and an inability to pass gas. 4. Please don?t expect to have a normal BM (bowel movement) for 2-3 days after your procedure. 5. If there are questions regarding the findings of your procedure, please contact your doctor 6. If you are unable to contact your doctor with a problem, contact the hospital at [phone]. 7. Continue all your regular medications unless directed otherwise. I understand the above instructions and have no questions. Signature of Patient or Adult Escort Name of Responsible Adult Escort Signature of Nurse Date/Time Stand Alone Forms: Anesthesia Discharge Inst., Tamiko Alas (Elías) Activity:: see above Diet:: see above Discharge Orders Discharge Orders: Discharge Order (Routine); Ordered 11/22/21 Ordered By: Xiomara Quintanilla Discharge Data Discharge Date/Time-TO BE ENTERED AT DEPARTURE: 11/23/21 09:35 Discharge Comment: Pt d/c from [facility]
[2021-11-23 09:13] VITALS: BP 109/69; PULSE 59; RESP 16; TEMP 36.2; O2SAT 100
--- NOTE | 2021-11-23 09:44 | W.ANESPOSTOP ---
Postoperative Evaluation Date, Time and Location Date Performed: 11/23/21 Time Performed: 09:44 Patient Location: Day Surgery Unit Vital Signs Most Recent Imported Vital Signs: Most Recent Vital Signs Temp Pulse Resp BP Pulse Ox 36.2 C L 59 L 16 109/69 100 11/23/21 09:13 11/23/21 09:13 11/23/21 09:13 11/23/21 09:13 11/23/21 09:13 Pain Score Most Recent Pain Score: Most Recent Pain Score Pain Level 0 11/23/21 09:13 Assessment Mental Status: Awake (Alert & Oriented to Patient Baseline) Airway and Respiratory Function: Patent airway with normal (patient baseline) respiratory exam Cardiovascular Function: Hemodynamically Stable Hydration Status: Adequately Hydrated Nausea & Vomiting: No Nausea or Vomiting Pain: Pt. Denies Any Pain Peripheral Nerve Block: Patient did not receive a nerve block
[2021-11-23 15:23] VITALS: BMI 36.1
--- NOTE | 2021-11-23 15:24 | W.COLOREPORT ---
Colonoscopy Report Date of procedure: 11/23/21 Pre-op diagnosis general: diarrhea Post-op diagnosis procedure note: same Surgeon: Xiomara Quintanilla Anesthesia Type: General:No Airway Estimated blood loss (mL): 1 Pathology: other Complications: None Disposition: PACU Prep: Miralax/Dulcolax Retraction Time: 9 Procedure Description: After informed consent was obtained the patient was taken to the procedure room and placed in a left decubitous position. Monitors were applied and a time out was done. The patients name, date of , procedure, allergies to medications and metal in their body was reviewed. The patient was then sedated. Once sedated and comfortable a rectal exam was done. External exam was normal. Internal exam revealed a normal sphincter tone and no palpable masses. The scope was then introduced and retrofelexed. No internal hemorrhoids were identified. The scope was then advanced to the cecum without difficulty. The TI and appendiceal orifice were identified. The prep was BB PS 1 in all segments for a total of 9. The scope was then slowly retracted over 9 minutes back into the rectum. There are no diverticula, polyps, or AVMs identified. The mucosa appears pink and healthy with a normal vascular pattern. Biopsies are taken at 90/70/40 centimeters in the rectum. All specimens are retrieved and no bleeding is noted.. The scope was removed and the patient was woken up and taken back to Same day surgery in stable condition. The patient tolerated the procedure well and there were no immediate complications. Follow up: The patient should follow up in 10 years unless they develop changes in bowel habits or other new gastrointestinal complaints. She will follow-up in the office in 2 to 3 weeks for the biopsy result. Patient was given different information and should start on a fiber supplement.
== END 2021-11-23 09:35 | disposition home or self-care (01) ==
PROVIDERS: PCP Nurse Practitioner; Visit Provider Surgery
PROC: 0DJD8ZZ Inspection of Lower Intestinal Tract, Via Natural or Artificial Opening Endoscopic (ICD-10-PCS; CPT 45378; principal; 2021-11-23 07:30)
DX: R19.7 Diarrhea, unspecified (principal); R73.03 Prediabetes; J45.909 Unspecified asthma, uncomplicated; Z80.0 Family history of malignant neoplasm of digestive organs; K62.89 Other specified diseases of anus and rectum; K63.89 Other specified diseases of intestine
CPT/HCPCS: 45380; 81025; 88305; J2250; J2405

== ENCOUNTER 2021-12-30 10:20 | Outpatient (CLI) | payer OTHER, SELFPAY ==
[2021-12-30 09:35] LABS: FREE T4 0.96 ng/dL (0.76-1.46)
== END 2021-12-30 10:21 | disposition home or self-care (01) ==
LOC: LBO 10:21
PROVIDERS: PCP Nurse Practitioner; Visit Provider Nurse Practitioner Family
DX: E03.9 Hypothyroidism, unspecified (principal)
CPT/HCPCS: 36415; 84439; 84443

== ENCOUNTER 2022-01-10 10:37 | Outpatient (REF) | payer OTHER, SELFPAY ==
[2022-01-10 13:44] LABS: Bilirubin Negative (Negative); Blood Moderate (Negative); Clarity Sl Cloudy (Clear); Glucose Negative (Negative); Ketones Negative (Negative); Leukocyte Esterase Moderate (Negative); Nitrite Negative (Negative); Urobilinogen 0.2 EU/dL (Up TO 0.2); pH 6.5 (5-8)
[2022-01-10 13:56] LABS: Bacteria Few HPF (Negative); C & S Indicated? Yes; Casts 0-2 Coarse Granular LPF (Negative); Crystals Negative HPF (Negative); Epithelial Cells Few HPF (Negative); Mucus Negative (Negative)
== END 2022-01-10 10:38 | disposition home or self-care (01) ==
LOC: LBN 10:37
PROVIDERS: PCP Nurse Practitioner; Visit Provider Physician Assistant
DX: R39.89 Other symptoms and signs involving the genitourinary system (principal)
CPT/HCPCS: 87077; 81003; 81015; 87086; 87186

== ENCOUNTER 2022-02-18 22:31 | Outpatient (REF) | payer OTHER, SELFPAY | END 2022-02-18 22:32 | disposition home or self-care (01) | LOC: LBN 22:31 | PROVIDERS: PCP Nurse Practitioner Family; Visit Provider Physician Assistant | DX: N39.0 Urinary tract infection, site not specified (principal) | CPT/HCPCS: 87086 ==

== ENCOUNTER 2022-03-05 20:22 | Emergency (ER) | payer OTHER, SELFPAY ==
[2022-03-05 20:39] LABS: Bilirubin Negative (Negative); Blood Trace-intact (Negative); Clarity Clear (Clear); Glucose 100 mg/dL (Negative); Ketones Negative (Negative); Leukocyte Esterase Trace (Negative); Nitrite Positive (Negative); Specific Gravity >= 1.030 (1.005-1.025); pH 5.5 (5-8)
[2022-03-05 20:48] VITALS: BP 107/78; PULSE 82; RESP 26; TEMP 36.7; O2SAT 99
[2022-03-05 20:48] LABS: Bacteria Rare HPF (Negative); C & S Indicated? C&S Done As Ordered; Crystals Negative HPF (Negative); Epithelial Cells Few HPF (Negative); Mucus Negative (Negative)
--- NOTE | 2022-03-05 21:52 | W.ED.GENAD ---
Discharge Plan Disposition Patient Disposition: Home Condition: Stable Discharge Details Clinical Impression: Urinary tract infection Primary Care Provider: Jama Barrientos ED Provider: Alisson Francois Home Meds and New Rx's Prescriptions: New ciprofloxacin HCl [Cipro] 500 mg tablet 500 mg PO BID Qty: 14 0RF Continued psyllium Packet 1 packet PO DAILY Qty: 30 12RF Rx Instructions: mix into at least 8 oz of water or juice before administering phenazopyridine [Pyridium] 200 mg tablet 200 mg PO TID PRN (Reason: pain) Qty: 6 0RF fluconazole [Diflucan] 150 mg tablet 150 mg PO ONCE Qty: 1 1RF Rx Instructions: as a single dose. Repeat in one week if needed epinephrine [EpiPen] 0.3 mg/0.3 mL auto-injector 0.3 mg IM ONCE Qty: 1 0RF prenat.vits,radha,mva-wmtx-rwvot Tablet 1 tab PO DAILY cholecalciferol (vitamin D3) 25 mcg (1,000 unit) capsule 25 mcg PO DAILY biotin 2,500 mcg capsule 2,500 mcg PO DAILY Saccharomyces boulardii [Daily Probiotic (S. boulardii)] 250 mg capsule 250 mg PO BID Qty: 60 0RF Rx Instructions: Take 1 capsule every 12 hours x 30days albuterol sulfate [ProAir HFA] 90 mcg/actuation HFA aerosol inhaler 2 puff IH 6XD PRN (Reason: shortness of breath or wheezing) Qty: 18 0RF Zyrtec 10 mg capsule 10 mg PO DAILY budesonide-formoterol [Symbicort] 160-4.5 mcg/actuation HFA aerosol inhaler 2 puff IH Q12H Qty: 10.2 11RF semaglutide 0.25 mg or 0.5 mg(2 mg/1.5 mL) pen injector 0.25 mg subcut QWEEK Qty: 1.5 0RF Rx Instructions: for 4 doses levothyroxine 137 mcg tablet 137 mcg PO DAILY Qty: 90 3RF omeprazole 20 mg capsule,delayed release(DR/EC) 20 mg PO DAILY Qty: 90 1RF fluticasone propionate [Allergy Relief (fluticasone)] 50 mcg/actuation spray,suspension 2 spray intranasal DAILY Qty: 16 6RF Rx Instructions: administer into each nostril Discontinued cephalexin 500 mg capsule 500 mg PO QID Qty: 28 0RF phenazopyridine [Pyridium] 200 mg tablet 200 mg PO TID PRN (Reason: pain) Qty: 6 0RF Discharge Instructions Instructions: Urinary Tract Infection in Women (ED) Referrals: Jama Barrientos NP [Primary Care Provider] - Camila Massey [ NON-[facility] STAFF PHYSICIAN] - Discharge Data Discharge Date/Time-TO BE ENTERED AT DEPARTURE: 03/05/22 22:35 Medical Decision Making patient presents with recurrent UTI, previous urine cultures reviewed and grew mathis sensitive ecoli. will change drug class and prescribe cipro while awaiting todays culture. no evidence of obstructive uropathy, no calculus. she should keep scheduled appointment with DR Massey urology at [place] for further evaluation. Medical Records Medical records reviewed: Yes I reviewed the patient's medical records. Medical records narrative: CT from [place] reviewed impression: no acute findings in abdomen or pelvis nonobstructive bowel pattern. No free air or inflammatory changes, normal appendix no evidence of obstructing urinary tract calculus Lab Data Lab results reviewed: Yes I reviewed the patient's lab results. Lab results narrative: 03/05/22 20:24 Urine - Clean Catch Urine Culture - Preliminary Gram Negative Rafi Laboratory Tests Range/Units 03/05/22 20:24 Urine Color (Yellow) Yellow Urine Clarity (Clear) Clear Urine pH (5-8) 5.5 Ur Specific [place] (1.005-1.025) >= 1.030 H Urine Protein (Negative) mg/dL Trace H Urine Ketones (Negative) mg/dL Negative Urine Blood (Negative) Trace-intact H Urine Nitrite (Negative) Positive H Urine Bilirubin (Negative) Negative Urine Urobilinogen (Up TO 0.2) EU/dL 1.0 H Ur Leukocyte Esterase (Negative) Trace H Urine RBC (0-2) HPF 5-10 H Urine WBC (0-5) HPF 10-20 H Ur Epithelial Cells (Negative) HPF Few Urine Crystals (Negative) HPF Negative Urine Bacteria (Negative) HPF Rare Urine Mucus (Negative) Negative Ur Culture Indicated? C&S Done As Ordered Urine Glucose (Negative) mg/dL 100 HPI General Limitations to Documentation: no limitations. Information obtained by: patient. HPI Narrative: presents with recurrent symptoms of dysuria, frequency and urgency. she has prescription for pyridium, she has had 3 recent UTI, treated with cephalexin, macrobid. previous urine culture was mathis senstive ecoli. she was seen by urology at [facility] day. no evidence of urinary retention by post void bladder scan, no renal stones on CT performed there today. no fever Related Data Home Medications Medication Instructions Recorded Confirmed cetirizine 10 mg capsule (Zyrtec) 10 mg PO DAILY 04/05/19 03/05/22 epinephrine 0.3 mg/0.3 mL 0.3 mg (0.3 mL) IM ONCE #1 ea 11/20/20 03/05/22 injection, auto-injector (EpiPen) prenat.vits,radha,bul-atoe-howen 1 tab PO DAILY 02/08/21 03/05/22 biotin 2,500 mcg capsule 2,500 mcg PO DAILY 06/03/21 03/05/22 cholecalciferol (vitamin D3) 25 25 mcg PO DAILY 06/03/21 03/05/22 mcg (1,000 unit) capsule budesonide-formoterol HFA 160 2 puff inhalation Q12H #10.2 grams 11/25/21 03/05/22 mcg-4.5 mcg/actuation aerosol inhaler (Symbicort) psyllium 1 packet PO DAILY #30 ea 12/13/21 03/05/22 semaglutide 0.25 mg or 0.5 mg (2 0.25 mg (0.2 mL) subcut QWEEK #1.5 12/21/21 03/05/22 mg/1.5 mL) subcutaneous pen mL injector fluconazole 150 mg tablet 150 mg PO ONCE #1 tab 01/10/22 03/05/22 (Diflucan) levothyroxine 137 mcg tablet 137 mcg PO DAILY #90 tabs 01/10/22 03/05/22 phenazopyridine 200 mg tablet 200 mg PO TID PRN pain 6 doses #6 01/10/22 03/05/22 (Pyridium) tabs omeprazole 20 mg capsule,delayed 20 mg PO DAILY #90 caps 01/20/22 03/05/22 release fluticasone propionate 50 2 spray intranasal DAILY #16 grams 02/03/22 03/05/22 mcg/actuation nasal spray,suspension (Allergy Relief (fluticasone)) Saccharomyces boulardii 250 mg 250 mg PO BID #60 caps 02/08/22 03/05/22 capsule (Daily Probiotic (S. boulardii)) albuterol sulfate 90 mcg/actuation 2 puff inhalation 6XD PRN 02/08/22 03/05/22 aerosol inhaler (ProAir HFA) shortness of breath or wheezing #18 grams ciprofloxacin HCl 500 mg tablet 500 mg PO BID #14 tabs 03/05/22 (Cipro) Previous Rx's Medication Instructions Recorded epinephrine 0.3 mg/0.3 mL 0.3 mg (0.3 mL) IM ONCE #1 ea 11/20/20 injection, auto-injector (EpiPen) budesonide-formoterol HFA 160 2 puff inhalation Q12H #10.2 grams 11/25/21 mcg-4.5 mcg/actuation aerosol inhaler (Symbicort) psyllium 1 packet PO DAILY #30 ea 12/13/21 semaglutide 0.25 mg or 0.5 mg (2 0.25 mg (0.2 mL) subcut QWEEK #1.5 12/21/21 mg/1.5 mL) subcutaneous pen mL injector fluconazole 150 mg tablet 150 mg PO ONCE #1 tab 01/10/22 (Diflucan) levothyroxine 137 mcg tablet 137 mcg PO DAILY #90 tabs 01/10/22 phenazopyridine 200 mg tablet 200 mg PO TID PRN pain 6 doses #6 01/10/22 (Pyridium) tabs omeprazole 20 mg capsule,delayed 20 mg PO DAILY #90 caps 01/20/22 release fluticasone propionate 50 2 spray intranasal DAILY #16 grams 02/03/22 mcg/actuation nasal spray,suspension (Allergy Relief (fluticasone)) Saccharomyces boulardii 250 mg 250 mg PO BID #60 caps 02/08/22 capsule (Daily Probiotic (S. boulardii)) albuterol sulfate 90 mcg/actuation 2 puff inhalation 6XD PRN 02/08/22 aerosol inhaler (ProAir HFA) shortness of breath or wheezing #18 grams ciprofloxacin HCl 500 mg tablet 500 mg PO BID #14 tabs 03/05/22 (Cipro) Allergies Allergy/AdvReac Type Severity Reaction Status Date / Time poison lula extract Allergy Mild Anaphylaxsi Verified 03/05/22 20:47 [Poison Lula Extract] s hair dye Allergy Intermediate Uncoded 03/05/22 20:47 General Stated Complaint: Urinary MYRANDA: 3 Review of Systems All systems reviewed & are unremarkable except as noted in HPI and below Constitutional Constitutional: Denies fever(s) Genitourinary Genitourinary: Reports dysuria and Reports urinary urgency Musculoskeletal Musculoskeletal: Denies back pain PFSH All Active Problems (Updated 03/05/22 @ 21:53 by Alisson Francois NP) Urinary tract infection (Acute) Morbid obesity (Acute) Family history of colon cancer (Acute) Screening for colon cancer (Acute) Chronic GERD (Acute) Family history of secondary colorectal cancer (Acute) Diarrhea (Acute) COVID-19 (Acute ~04/08/21) Prediabetes (Acute) Dysphagia (Acute) 12/2020- Barium swallow negative Bilateral tinnitus (Acute) Carpal tunnel syndrome (Acute) left Decreased hearing (Acute) (Acute) ADHD (Acute) Hypothyroid (Chronic) Asthma (Chronic) Medical History Abnormal auditory perception (05/21/15) Allergic reaction (12/23/13) Allergic rhinitis (11/11/13) Allergic rhinitis due to other allergen (12/23/13) Asthma Breathing difficulty (11/11/13) Postnasal drip (11/11/13) Surgical History History of colonoscopy with polypectomy (~11/23/21) benign History of open reduction and internal fixation (ORIF) procedure right elbow Family History Mother Hyperlipidemia Father Heart disease Brother Hyperlipidemia Brother , age 39 Depression Son No problems noted. Daughter No problems noted. Maternal Grandfather , age 92 No problems noted. Paternal Grandfather , age 91 Lung cancer Maternal Grandmother Colon cancer Paternal Grandmother , age 89 Heart disease Social History Smoking/Tobacco Use Status: Never Second Hand Exposure: Yes Smoking risk assessment performed?: Yes Alcohol Intake: former Drug use: Never Substance use type: does not use Caregiver/Support person: No Household members: spouse and children Housing: house Communication Needs: Hard of Hearing Do you need help understanding health information?: Never Pets and animals: Yes Pets and animals: dog(s) Sexually active: Yes Do you think of yourself as: straight/heterosexual Current gender identity: female What is your relationship status?: How often do you talk on the phone with friends or family?: three or more times per week How often do you get together with friends or relatives?: three or more times per week How often do you attend restoration or sabianism services?: decline to answer Do you belong to any clubs or organized social groups?: yes Panel score (0-1 are the most socially isolated patients): 3 What type of physical activity do you participate in: walking Duration: 30-45 minutes/day Frequency: 3-4 times per week Zabrina/Mosque: Sikhism Special zabrina needs: No Seatbelt use: always Helmet use: Yes Helmet use: always 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 Do you feel safe at home: Yes Do you feel safe in your relationship?: Yes Exam Const General: cooperative and no acute distress Nutritional Appearance: obese Orientation: alert, awake and oriented x3 HENMT Head: normal to inspection Mouth: oral mucosae normal Resp Effort & Inspection: normal respiratory effort Cardio Rate: regular rate Rhythm: regular rhythm GI Inspection: large pannus and obesity Palpation: soft and tender in the LLQ Skin General skin exam: no rashes or lesions noted Neuro General: patient alert, patient awake and patient oriented x3 Course Vital Signs Vital signs: Vital Signs Temperature 36.7 C 03/05/22 20:48 Pulse 82 03/05/22 20:48 Respiratory Rate 26 H 03/05/22 20:48 Blood Pressure 107/78 03/05/22 20:48 Pulse Oximetry 99 03/05/22 20:48 Temperature 36.7 C 03/05/22 20:48 Temperature Source Oral 03/05/22 20:48 Pulse 82 03/05/22 20:48 Respiratory Rate 26 H 03/05/22 20:48 Respiratory Effort Non-Labored 03/05/22 20:52 Blood Pressure 107/78 03/05/22 20:48 Blood Pressure Position Sitting 03/05/22 20:48 Pulse Oximetry 99 03/05/22 20:48 Oxygen Delivery Method Room Air 03/05/22 20:48 Oxygen Flow Rate 0 03/05/22 20:48 Pain Level 8 03/05/22 20:52 Lab/Test Results Lab/Test Results: 03/05/22 20:24 Urine - Clean Catch Urine Culture - Pending Laboratory Tests Range/Units 03/05/22 20:24 Urine Color (Yellow) Yellow Urine Clarity (Clear) Clear Urine pH (5-8) 5.5 Ur Specific [place] (1.005-1.025) >= 1.030 H Urine Protein (Negative) mg/dL Trace H Urine Ketones (Negative) mg/dL Negative Urine Blood (Negative) Trace-intact H Urine Nitrite (Negative) Positive H Urine Bilirubin (Negative) Negative Urine Urobilinogen (Up TO 0.2) EU/dL 1.0 H Ur Leukocyte Esterase (Negative) Trace H Urine RBC (0-2) HPF 5-10 H Urine WBC (0-5) HPF 10-20 H Ur Epithelial Cells (Negative) HPF Few Urine Crystals (Negative) HPF Negative Urine Bacteria (Negative) HPF Rare Urine Mucus (Negative) Negative Ur Culture Indicated? C&S Done As Ordered Urine Glucose (Negative) mg/dL 100
[2022-03-06 01:49] VITALS: BP 109/82; PULSE 84; RESP 21; O2SAT 99
== END 2022-03-05 22:35 | disposition home or self-care (01) ==
PROVIDERS: Emergency Provider Nurse Practitioner Acute Care; PCP Nurse Practitioner Family
DX: N39.0 Urinary tract infection, site not specified (principal); B96.89 Other specified bacterial agents as the cause of diseases classified elsewhere
CPT/HCPCS: 99283; 81003; 81015; 87086

== ENCOUNTER 2022-03-11 00:55 | Outpatient (CLI) | payer OTHER, SELFPAY ==
[2022-03-11 12:58] LABS: TSH (W/Ref FT4) 2.46 uIU/mL (0.36-3.74)
== END 2022-03-11 00:56 | disposition home or self-care (01) ==
LOC: LOS 00:56
PROVIDERS: PCP Nurse Practitioner Family; Visit Provider Nurse Practitioner Family
DX: E03.9 Hypothyroidism, unspecified (principal)
CPT/HCPCS: 36415; 84443

== ENCOUNTER 2022-04-07 11:20 | Outpatient (CLI) | payer OTHER, SELFPAY ==
[2022-04-07 10:47] LABS: Anion Gap 9.2 mmol/L (3-11); BUN 13 mg/dL (7-18); CO2 24.8 mmol/L (21.0-32.0); Calcium 8.9 mg/dL (8.5-10.1); Chloride 106 mmol/L (98-107); Estimated GFR 72.13 (mL/min/1.73m2); Glucose 115 mg/dL (74-106); Potassium 4.4 mmol/L (3.5-5.1); Sodium 140 mmol/L (136-145)
== END 2022-04-07 11:21 | disposition home or self-care (01) ==
LOC: LBO 11:32
PROVIDERS: PCP Nurse Practitioner Family; Visit Provider Nurse Practitioner Family
DX: R73.03 Prediabetes (principal); E03.9 Hypothyroidism, unspecified; E11.9 Type 2 diabetes mellitus without complications
CPT/HCPCS: 36415; 80048

== ENCOUNTER 2022-06-20 03:30 | Outpatient (CLI) | payer OTHER, SELFPAY ==
[2022-06-20 12:30] LABS: Anion Gap 8.1 mmol/L (3-11); BUN 16 mg/dL (7-18); CO2 29.9 mmol/L (21.0-32.0); CREATININE 0.8 mg/dL (0.55-1.02); Calcium 9.1 mg/dL (8.5-10.1); Chloride 104 mmol/L (98-107); Estimated GFR 94.28 (mL/min/1.73m2); Glucose 105 mg/dL (74-106); Potassium 4.3 mmol/L (3.5-5.1); Sodium 142 mmol/L (136-145)
== END 2022-06-20 03:31 | disposition home or self-care (01) ==
LOC: LOS 03:30
PROVIDERS: PCP Nurse Practitioner Family; Visit Provider Nurse Practitioner Family
DX: R73.03 Prediabetes (principal)
CPT/HCPCS: 36415; 80048

== ENCOUNTER 2022-09-17 15:37 | Outpatient (REF) | payer OTHER, SELFPAY ==
[2022-09-17 16:00] LABS: Bilirubin Negative (Negative); Blood Trace-intact (Negative); Clarity Clear (Clear); Glucose Negative (Negative); Ketones Negative (Negative); Leukocyte Esterase Trace (Negative); Nitrite Negative (Negative); Specific Gravity 1.015 (1.005-1.025); Urobilinogen 0.2 mg/dL (Up to 0.2); pH 7.5 (5-8)
[2022-09-17 16:08] LABS: Bacteria Moderate HPF (Negative); C & S Indicated? Yes; Casts Negative LPF (Negative); Crystals Negative HPF (Negative); Epithelial Cells Rare HPF (Negative); Mucus Negative (Negative); RBC 0-2 HPF (0-2); WBC 0-2 HPF (0-5)
== END 2022-09-17 15:38 | disposition home or self-care (01) ==
LOC: LBN 15:37
PROVIDERS: PCP Nurse Practitioner Family; Visit Provider Physician Assistant
DX: N39.0 Urinary tract infection, site not specified (principal)
CPT/HCPCS: 87077; 81003; 81015; 87086; 87186

== ENCOUNTER 2022-10-11 19:07 | Outpatient (CLI) | payer OTHER, SELFPAY ==
--- NOTE | 2022-10-11 19:00 | RT.EKG_ITS ---
APPROVED REPORT Exam: Resting ECG Reason for Exam: controlled substance agreement Patient Location: O HR:55 bpm ECG Measurements Heart Rate 55 AXIS [place] 147 P 34 QRSd 88 QRS 14 QT 482 T 31 QTc 461 Conclusion Sinus rhythm...normal P axis, V-rate 50- 99 Baseline wander in lead(s) V3 Normal Electrocardiogram
== END 2022-10-11 19:08 | disposition home or self-care (01) ==
LOC: DI.CM 19:09
PROVIDERS: PCP Nurse Practitioner Family; Visit Provider Nurse Practitioner Family
DX: Z79.899 Other long term (current) drug therapy (principal)
CPT/HCPCS: 93010

== ENCOUNTER 2022-11-09 12:31 | Outpatient (REF) | payer OTHER, SELFPAY | END 2022-11-09 12:32 | disposition home or self-care (01) | LOC: LBN 12:31 | PROVIDERS: PCP Nurse Practitioner Family; Visit Provider Nurse Practitioner Family | DX: N39.0 Urinary tract infection, site not specified (principal) | CPT/HCPCS: 87086 ==

== ENCOUNTER 2022-12-08 18:33 | Outpatient (REF) | payer OTHER, SELFPAY ==
[2022-12-08 20:59] LABS: Bilirubin Negative (Negative); Blood Trace-lysed (Negative); Clarity Clear (Clear); Glucose Negative (Negative); Ketones Negative (Negative); Leukocyte Esterase Trace (Negative); Nitrite Negative (Negative); Urobilinogen 0.2 mg/dL (Up to 0.2); pH 6.5 (5-8)
[2022-12-08 21:03] LABS: Bacteria Few HPF (Negative); C & S Indicated? Yes; Casts Negative LPF (Negative); Crystals Negative HPF (Negative); Epithelial Cells Rare HPF (Negative); Mucus Negative (Negative)
== END 2022-12-08 18:34 | disposition home or self-care (01) ==
LOC: LBN 18:33
PROVIDERS: PCP Nurse Practitioner Family; Visit Provider Nurse Practitioner Family
DX: R30.0 Dysuria (principal); R35.0 Frequency of micturition; N39.0 Urinary tract infection, site not specified
CPT/HCPCS: 81003; 81015; 87086

== ENCOUNTER 2023-01-23 11:25 | Outpatient (REF) | payer OTHER, SELFPAY | END 2023-01-23 11:26 | disposition home or self-care (01) | LOC: LBN 11:25 | PROVIDERS: PCP Nurse Practitioner Family; Visit Provider Physician Assistant | DX: N39.0 Urinary tract infection, site not specified (principal) | CPT/HCPCS: 87077; 87086; 87186 ==

== ENCOUNTER 2023-02-20 17:42 | Outpatient (REF) | payer OTHER, SELFPAY ==
[2023-02-20 17:55] LABS: Bilirubin Negative (Negative); Blood Trace-intact (Negative); Clarity Cloudy (Clear); Glucose 100 mg/dL (Negative); Ketones Negative (Negative); Leukocyte Esterase Small (Negative); Nitrite Positive (Negative); pH 7.5 (5-8)
[2023-02-20 18:03] LABS: Bacteria Moderate HPF (Negative); Crystals Few Amorphous HPF (Negative); Epithelial Cells Few HPF (Negative); RBC 0-2 HPF (0-2)
[2023-02-20 18:04] LABS: C & S Indicated? C&S Done As Ordered; Casts Negative LPF (Negative); Mucus Trace (Negative)
== END 2023-02-20 17:43 | disposition home or self-care (01) ==
LOC: LBN 17:42
PROVIDERS: PCP Nurse Practitioner Family; Visit Provider Nurse Practitioner Family
DX: N30.90 Cystitis, unspecified without hematuria (principal)
CPT/HCPCS: 87077; 81003; 81015; 87086; 87186

== ENCOUNTER 2023-02-22 02:53 | Outpatient (CLI) | payer OTHER, SELFPAY ==
[2023-02-22 07:50] LABS: HCT 40.5 % (36.0-46.0); HGB 13.4 g/dL (11.2-15.7); MCH 28.8 pg (27.0-33.0); MCHC 33.1 % (32.0-36.0); MCV 87 fL (80-95); MPV 9.8 fL (8.0-11.0); Platelet Count 293 10^3/uL (130-400); RBC 4.65 10^6/uL (3.93-5.22); RDW 12.8 % (11.7-14.6); RDW-SD 40.5 fL; WBC 9.11 10^3/uL (4.4-10.8)
[2023-02-22 08:06] LABS: Hemoglobin A1C 5.7 % (<5.7)
[2023-02-22 08:26] LABS: Anion Gap 9.3 mmol/L (3-11); BUN 13 mg/dL (7-18); CO2 26.7 mmol/L (21.0-32.0); Calcium 9.2 mg/dL (8.5-10.1); Calculated LDL 102 mg/dL (<100); Chloride 103 mmol/L (98-107); Cholesterol 168 mg/dL (<200); Estimated GFR 71.69 (mL/min/1.73m2); Glucose 116 mg/dL (74-106); HDL Cholesterol 38 mg/dL (40-60); Potassium 4.2 mmol/L (3.5-5.1); Sodium 139 mmol/L (136-145); TSH (W/Ref FT4) 2.02 uIU/mL (0.36-3.74); Triglyceride 144 mg/dL (<150)
== END 2023-02-22 02:54 | disposition home or self-care (01) ==
LOC: LBO 02:53
PROVIDERS: PCP Nurse Practitioner Family; Visit Provider Nurse Practitioner Family
DX: F90.9 Attention-deficit hyperactivity disorder, unspecified type; K21.9 Gastro-esophageal reflux disease without esophagitis; L98.9 Disorder of the skin and subcutaneous tissue, unspecified; R73.03 Prediabetes; Z00.00 Encounter for general adult medical examination without abnormal findings
CPT/HCPCS: 36415; 80048; 80061; 85027; 83036; 84443

== ENCOUNTER → 2023-04-10 19:05 | Outpatient (CLI) | payer OTHER, SELFPAY ==
--- NOTE | 2023-04-10 13:15 | DI.RAD_ITS ---
Exam(s) XR CHEST 2V PA LATERAL EXAM: XR CHEST 2V PA LATERAL CLINICAL HISTORY: ? pneumonia R06.02 SOB TECHNIQUE: 2D digital imaging was performed. COMPARISON: CR RF BARIUM SWALLOW from 12/28/2020 FINDINGS: HEART: Normal size. Aorta: Not dilated. PULMONARY VASCULATURE: Normal. LUNGS: Clear. PLEURAL SPACE: No pleural effusion or pneumothorax. BONE:Unremarkable for age. Soft tissues: Unremarkable. IMPRESSION: No acute abnormality. DATA REPOSITORY: RADIATION DOSE DELIVERED:
== END ==
PROVIDERS: PCP Nurse Practitioner Family; Visit Provider Family Medicine
DX: R06.02 Shortness of breath (principal)
CPT/HCPCS: 71046

== ENCOUNTER 2023-04-17 13:27 | Outpatient (REF) | payer OTHER, SELFPAY ==
[2023-04-17 21:55] LABS: Bilirubin Negative (Negative); Blood Negative (Negative); Clarity Sl Cloudy (Clear); Glucose 100 mg/dL (Negative); Ketones Trace mg/dL (Negative); Leukocyte Esterase Negative (Negative); Nitrite Positive (Negative)
[2023-04-17 22:11] LABS: Bacteria Moderate HPF (Negative); C & S Indicated? Yes; Casts Negative LPF (Negative); Crystals Negative HPF (Negative); Epithelial Cells Few HPF (Negative); Mucus Trace (Negative); RBC Negative HPF (0-2)
== END 2023-04-17 13:28 | disposition home or self-care (01) ==
LOC: LBN 13:27
PROVIDERS: PCP Nurse Practitioner Family; Visit Provider Physician Assistant
DX: R39.89 Other symptoms and signs involving the genitourinary system (principal); R82.998 Other abnormal findings in urine
CPT/HCPCS: 87077; 81003; 81015; 87086; 87186

== ENCOUNTER 2023-04-24 11:41 | Outpatient (REF) | payer OTHER, SELFPAY | END 2023-04-24 11:42 | disposition home or self-care (01) | LOC: LBN 11:41 | PROVIDERS: PCP Nurse Practitioner Family; Visit Provider Nurse Practitioner Family | DX: L29.2 Pruritus vulvae (principal) | CPT/HCPCS: 87480; 87510; 87660 ==

== ENCOUNTER 2023-05-08 16:17 | Outpatient (REF) | payer OTHER, SELFPAY ==
--- NOTE | 2023-05-08 15:00 | SKI_PTH ---
PATIENT: Fatemeh Walden LOC: [facility] U#:[id number] AGE/SX: 42/F ROOM: RE05/08/[address]: Iván Liu MD : 1980 BED: DIS: 05/08/2023 SPEC #: [id number] RECD: 05/08/23 18:09 STATUS: LEVI RESonny #: [id number] TOMMY: 05/08/23 15:[address]: Iván Liu DEPT: Surgical Specimen RECD BY: Clari Dent ENTERED: 05/08/23 18:10 SP TYPE: MITA DELATORRE DR: Jama Sanches DNP Tissues: 1 - SKIN BIOPSY(SHAVE/PUNCH) Procedures: SKIN LEVEL 4 Comments: [id number]
== END 2023-05-08 16:18 | disposition home or self-care (01) ==
LOC: LBN 16:17
PROVIDERS: PCP Nurse Practitioner Family; Visit Provider Otolaryngology
DX: L82.1 Other seborrheic keratosis (principal); L98.8 Other specified disorders of the skin and subcutaneous tissue
CPT/HCPCS: 88305

== ENCOUNTER 2023-09-06 17:22 | Outpatient (CLI) | payer OTHER, SELFPAY ==
[2023-09-06 17:05] LABS: HCT 39.9 % (36.0-46.0); HGB 13.2 g/dL (11.2-15.7); MCH 29.6 pg (27.0-33.0); MCHC 33.1 % (32.0-36.0); MCV 90 fL (80-95); MPV 10.1 fL (8.0-11.0); Platelet Count 284 10^3/uL (130-400); RBC 4.46 10^6/uL (3.93-5.22); RDW 13.1 % (11.7-14.6); WBC 11.68 10^3/uL (4.4-10.8)
[2023-09-06 17:24] LABS: Anion Gap 9.8 mmol/L (3-11); BUN 11 mg/dL (7-18); CO2 27.2 mmol/L (21.0-32.0); CREATININE 1.1 mg/dL (0.55-1.02); Calcium 8.8 mg/dL (8.5-10.1); Chloride 105 mmol/L (98-107); Estimated GFR 63.54 (mL/min/1.73m2); Glucose 95 mg/dL (74-106); Potassium 3.4 mmol/L (3.5-5.1); Sodium 142 mmol/L (136-145)
== END 2023-09-06 17:23 | disposition home or self-care (01) ==
LOC: LBO 17:22
PROVIDERS: PCP Nurse Practitioner Family; Visit Provider Family Medicine
DX: E87.1 Hypo-osmolality and hyponatremia (principal); R53.83 Other fatigue
CPT/HCPCS: 36415; 80048; 85027

== ENCOUNTER 2023-09-06 17:23 | Emergency (ER) | payer OTHER, SELFPAY ==
[2023-09-06 17:27] VITALS: BP 118/78; PULSE 58; RESP 15; TEMP 36.3; O2SAT 100
--- NOTE | 2023-09-06 17:30 | RT.EKG_ITS ---
APPROVED REPORT Exam: Resting ECG Reason for Exam: high bp sob Patient Location: E HR:56 bpm ECG Measurements Heart Rate 56 AXIS [place] 152 P 33 QRSd 84 QRS 13 QT 504 T 23 QTc 487 Conclusion Bradycardia with irregular rate...V-rate 52- 68, mean < 60 sinus bradycardia, normal axis, normal intervals, non ischemic
--- NOTE | 2023-09-06 18:00 | DI.RAD_ITS ---
Exam(s) XR CHEST 2V PA LATERAL EXAM: XR CHEST 2V PA LATERAL CLINICAL HISTORY: presyncope. TECHNIQUE: 2D digital imaging was performed. COMPARISON: CR XR CHEST 2V PA LATERAL from 04/10/2023 FINDINGS: 2 views: Heart size is normal. The mediastinum is not widened. Lungs are clear. No infiltrates nor pleural effusions. IMPRESSION: No acute pulmonary findings. DATA REPOSITORY: RADIATION DOSE DELIVERED:
[2023-09-06] MEDS: Normal Saline 1,000 ML 1000 ML IV (18:15)
--- NOTE | 2023-09-06 18:16 | W.ED.GENAD ---
Discharge Plan Disposition Patient Disposition: Home Condition: Improving Discharge Details Chief Complaint: Dizzy/Sync Clinical Impression: Near syncope Primary Care Provider: Jama Barrientos ED Provider: Jasbir uGdino Home Meds and New Rx's Prescriptions: No Action fluconazole 150 mg tablet 150 mg PO Q3D 0 Days Qty: 2 0RF Rx Instructions: may repeat second dose 72 hrs after first dose if symptoms persist epinephrine [EpiPen] 0.3 mg/0.3 mL auto-injector 0.3 mg IM ONCE Qty: 1 0RF cholecalciferol (vitamin D3) 25 mcg (1,000 unit) capsule 25 mcg PO DAILY biotin 2,500 mcg capsule 2,500 mcg PO DAILY Saccharomyces boulardii [Daily Probiotic (S. boulardii)] 250 mg capsule 250 mg PO BID Qty: 60 0RF Rx Instructions: Take 1 capsule every 12 hours x 30days fexofenadine 180 mg tablet 180 mg PO DAILY levothyroxine 137 mcg tablet 137 mcg PO DAILY Qty: 90 3RF Rx Instructions: 137 mcg orally daily; cephalexin 250 mg capsule 250 mg PO ONCE PRN (Reason: UTI prophylaxis) Qty: 20 1RF Rx Instructions: take immediately prior to or after sexual activity to prevent UTI cranberry 500 mg capsule 1,500 mg PO DAILY Rx Instructions: administer with meals Zyrtec 10 mg capsule 10 mg PO DAILY budesonide-formoterol [Symbicort] 160-4.5 mcg/actuation HFA aerosol inhaler 2 puff IH Q12H Qty: 10.2 11RF fluticasone propionate [Allergy Relief (fluticasone)] 50 mcg/actuation spray,suspension 2 spray intranasal DAILY Qty: 16 6RF Rx Instructions: administer into each nostril albuterol sulfate [ProAir HFA] 90 mcg/actuation HFA aerosol inhaler 2 puff IH 6XD PRN (Reason: shortness of breath or wheezing) Qty: 18 0RF dexmethylphenidate [Focalin XR] 30 mg capsule,ER biphasic 50-50 30 mg PO DAILY MDD 1 capsule daily Qty: 28 0RF One-A-Day -1 27 mg iron- 800 mcg-235 mg capsule 1 cap PO DAILY Qty: 90 4RF omeprazole 20 mg capsule,delayed release(DR/EC) 20 mg PO DAILY Patient Comments: TAKE ONE CAPSULE BY MOUTH EVERY DAY M-Willow Plus 27 mg iron- 1 mg tablet 1 tab PO DAILY Patient Comments: TAKE ONE TABLET BY MOUTH EVERY DAY Discharge Instructions Instructions: Syncope (fainting) Additional Instructions: Please stay hydrated, consider discontinuing or cutting back on your supplement, follow close with your primary care physician. Return to the emergency department for any worsening symptoms HPI General Date/Time Provider Initiated Documentation: 09/06/23 17:32. HPI Narrative: 43-year-old female presents with lightheaded sensation as well as shortness of breath and dizziness this afternoon after walking into the heat after having a blood draw. Lightheadedness increased with activity. Improved with rest however still slightly lightheaded currently. No chest pain no current shortness of breath no leg swelling or pain. No history of thromboembolic disease. No exogenous estrogen use. Patient did start RUDDY supplement that she purchased on [employer] within the last couple of days and has been practicing intermittent fasting. Related Data Home Medications Medication Instructions Recorded Confirmed cetirizine 10 mg capsule (Zyrtec) 10 mg PO DAILY 04/05/19 09/06/23 epinephrine 0.3 mg/0.3 mL 0.3 mg (0.3 mL) IM ONCE #1 ea 11/20/20 09/06/23 injection, auto-injector (EpiPen) biotin 2,500 mcg capsule 2,500 mcg PO DAILY 06/03/21 09/06/23 cholecalciferol (vitamin D3) 25 25 mcg PO DAILY 06/03/21 09/06/23 mcg (1,000 unit) capsule budesonide-formoterol HFA 160 2 puff inhalation Q12H #10.2 grams 11/25/21 09/06/23 mcg-4.5 mcg/actuation aerosol inhaler (Symbicort) Saccharomyces boulardii 250 mg 250 mg PO BID #60 caps 02/08/22 09/06/23 capsule (Daily Probiotic (S. boulardii)) fluticasone propionate 50 2 spray intranasal DAILY #16 grams 09/02/22 09/06/23 mcg/actuation nasal spray,suspension (Allergy Relief (fluticasone)) fexofenadine 180 mg tablet 180 mg PO DAILY 09/17/22 09/06/23 levothyroxine 137 mcg tablet 137 mcg PO DAILY #90 tabs 02/13/23 09/06/23 fluconazole 150 mg tablet 150 mg PO Q3D 2 doses #2 tabs 04/24/23 09/06/23 cranberry 500 mg capsule 1,500 mg PO DAILY 05/08/23 09/06/23 albuterol sulfate 90 mcg/actuation 2 puff inhalation 6XD PRN 08/04/23 09/06/23 aerosol inhaler (ProAir HFA) shortness of breath or wheezing #18 grams dexmethylphenidate 30 mg 30 mg PO DAILY #28 caps 08/15/23 09/06/23 capsule,extended release [id number] (Focalin XR) cephalexin 250 mg capsule 250 mg PO ONCE PRN UTI prophylaxis 08/21/23 09/06/23 #20 caps vit 168-iron 27 mg-folic 1 cap PO DAILY #90 caps 09/01/23 09/06/23 acid 800 mcg-omega3 235 mg capsule (One-A-Day -1) omeprazole 20 mg capsule,delayed 20 mg PO DAILY 09/06/23 09/06/23 release vitamin with calcium 1 tab PO DAILY 09/06/23 09/06/23 no.72-iron 27 mg-folic acid 1 mg tablet (M-Willow Plus) Previous Rx's Medication Instructions Recorded epinephrine 0.3 mg/0.3 mL 0.3 mg (0.3 mL) IM ONCE #1 ea 11/20/20 injection, auto-injector (EpiPen) budesonide-formoterol HFA 160 2 puff inhalation Q12H #10.2 grams 11/25/21 mcg-4.5 mcg/actuation aerosol inhaler (Symbicort) Saccharomyces boulardii 250 mg 250 mg PO BID #60 caps 02/08/22 capsule (Daily Probiotic (S. boulardii)) fluticasone propionate 50 2 spray intranasal DAILY #16 grams 09/02/22 mcg/actuation nasal spray,suspension (Allergy Relief (fluticasone)) levothyroxine 137 mcg tablet 137 mcg PO DAILY #90 tabs 02/13/23 fluconazole 150 mg tablet 150 mg PO Q3D 2 doses #2 tabs 04/24/23 albuterol sulfate 90 mcg/actuation 2 puff inhalation 6XD PRN 08/04/23 aerosol inhaler (ProAir HFA) shortness of breath or wheezing #18 grams dexmethylphenidate 30 mg 30 mg PO DAILY #28 caps 08/15/23 capsule,extended release [id number] (Focalin XR) cephalexin 250 mg capsule 250 mg PO ONCE PRN UTI prophylaxis 08/21/23 #20 caps vit 168-iron 27 mg-folic 1 cap PO DAILY #90 caps 09/01/23 acid 800 mcg-omega3 235 mg capsule (One-A-Day -1) Allergies Allergy/AdvReac Type Severity Reaction Status Date / Time poison lula extract Allergy Mild Anaphylaxsi Verified 09/06/23 17:55 [Poison Lula Extract] s hair dye Allergy Intermediate Itching Uncoded 09/06/23 17:55 General Stated Complaint: Dizzy/Sync MYRANDA: 3 Review of Systems Narrative: Review of Systems Constitutional: negative Eyes: negative ENT: negative Cardiovascular: Lightheadedness Respiratory: negative Gastrointestinal: negative : negative Musculoskeletal: negative Skin: negative Neurologic: negative Psych: negative Exam Narrative Exam Narrative: Physical Examination General: alert, awake, cooperative, resting comfortably, no acute distress HEENT: normocephalic, atraumatic; PERRL, EOM intact, conjunctiva normal; no nasal discharge; moist mucous membranes, oral and pharyngeal mucosa normal, tolerating secretions Neck: supple, trachea midline; full ROM Chest: normal to inspection Respiratory: normal respiratory effort, speaking in full sentences, clear to auscultation, no wheezing, rales or rhonchi Cardiac: regular rate, regular rhythm, S1S2 intact, no murmurs rubs or gallops GI: abdomen soft, non-tender, non-distended; no palpable mass or hepatosplenomegaly Skin: no lesions, rashes or trauma appreciated Neuro: AAOx3, normal speech, moving all extremities Extremities: No peripheral edema Psych: Appropriate mood and affect Course Vital Signs Vital signs: Vital Signs Temperature 36.3 C L 09/06/23 17:27 Pulse 58 L 09/06/23 17:27 Respiratory Rate 09/06/23 17:27 Blood Pressure 118/78 09/06/23 17:27 Pulse Oximetry 100 09/06/23 17:27 Temperature 36.3 C L 09/06/23 17:27 Temperature Source Temporal Artery Scan 09/06/23 17:27 Pulse 58 L 09/06/23 17:27 Respiratory Rate 15 09/06/23 17:27 Blood Pressure 118/78 09/06/23 17:27 Blood Pressure Position Sitting 09/06/23 17:27 Pulse Oximetry 100 09/06/23 17:27 Oxygen Delivery Method Room Air 09/06/23 17:27 Oxygen Flow Rate 0 09/06/23 17:27 Pain Level 0 09/06/23 17:27 Medical Decision Making 43-year-old female history of hypothyroidism presents with lightheadedness shortness of breath in the setting of heat exposure environmentally after having a blood draw, denies chest pain denies history of thromboembolic disease denies history of coronary disease, no exogenous estrogen use, no leg swelling or pain, patient does endorse starting a RUDDY supplement that she bought on [employer] within the last couple of days and has been practicing intermittent fasting. Consider presyncopal sensation in the setting of possible dehydration and heat exposure versus electrolyte derangement versus hypoglycemia versus orthostasis versus vasovagal episode low suspicion for ACS PE or intracranial process. No evidence of infectious process. Muscles consider drug reaction to RUDDY supplement. Trial of fluids rest obtain basic labs troponin D-dimer chest x-ray EKG sinus bradycardia without ischemic changes. 20: 38 resting comfortably no acute distress labs and imaging unremarkable. Symptomatology likely multifactorial patient had had a blood drawl, patient was exposed to high heat today patient has been intermittently fasting likely leading to presyncopal sensation. Tolerating p.o. at the bedside ambulatory without assistance. Home care instructions and strict return precautions given Quality:SDOH Health Related Social Needs: No Data to Display PFSH All Active Problems (Updated 09/06/23 @ 20:39 by Jasbir Gudino MD) Near syncope (Acute) Stress incontinence (Acute) Vulvar itching (Acute) Shortness of breath (Acute) Skin lesion of face (Acute) Contraception management (Acute) Recurrent UTI (Acute) Morbid obesity (Acute) Family history of colon cancer (Acute) Screening for colon cancer (Acute) Chronic GERD (Acute) Family history of secondary colorectal cancer (Acute) Diarrhea (Acute) COVID-19 (Acute ~04/08/21) Prediabetes (Acute) Dysphagia (Acute) 12/2020- Barium swallow negative Bilateral tinnitus (Acute) Carpal tunnel syndrome (Acute) left Decreased hearing (Acute) ADHD (Acute) Hypothyroid (Chronic) Asthma (Chronic) Medical History Strep pharyngitis Asthma Postnasal drip (11/11/13) Breathing difficulty (11/11/13) Allergic rhinitis due to other allergen (12/23/13) Allergic rhinitis (11/11/13) Allergic reaction (12/23/13) Abnormal auditory perception (05/21/15) Surgical History History of colonoscopy with polypectomy (~11/23/21) benign History of open reduction and internal fixation (ORIF) procedure right elbow Family History Mother Hyperlipidemia Father Heart disease Brother Hyperlipidemia Brother , age 39 Depression Son No problems noted. Daughter No problems noted. Maternal Grandfather , age 92 No problems noted. Paternal Grandfather , age 91 Lung cancer Maternal Grandmother Colon cancer Paternal Grandmother , age 89 Heart disease Social History Smoking/Tobacco Use Status: Never Second Hand Exposure: Yes Smoking risk assessment performed?: Yes Alcohol Intake: current Alcohol Intake frequency: holidays/special occasions only Alcohol type: hard liquor Drug use: Never Substance use type: does not use Adopted: No Caregiver/Support person: No Foster care: No Household members: spouse and children Housing: house Communication Needs: Hard of Hearing Do you need help understanding health information?: Never Pets and animals: Yes Pets and animals: dog(s) Sexually active: Yes Do you think of yourself as: straight/heterosexual Current gender identity: female What is your relationship status?: How often do you talk on the phone with friends or family?: three or more times per week How often do you get together with friends or relatives?: once per week How often do you attend sikhism or jainism services?: decline to answer Do you belong to any clubs or organized social groups?: yes Panel score (0-1 are the most socially isolated patients): 3 What type of physical activity do you participate in: walking and other Details: stairs at work Duration: 30-45 minutes/day Frequency: 3-4 times per week Zabrina/Roman Catholic: Mormon Special zabrina needs: No Seatbelt use: always Helmet use: Yes Helmet use: always 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
[2023-09-06 18:30] VITALS: RESP 20
[2023-09-06 18:42] LABS: Abs Immature Grans 0.05 10^3/uL (0.0-0.06); Absolute Basophil Count 0.03 10^3/uL (0.0-0.2); Absolute Eosinophil Count 0.47 10^3/uL (0.0-0.7); Absolute Lymphocyte Count 2.84 10^3/uL (1.2-3.4); Basophils % 0.3 %; Eosinophils % 4.1 %; HCT 41.6 % (36.0-46.0); HGB 13.8 g/dL (11.2-15.7); Immature Grans % 0.4 %; Lymphocytes % 24.9 %; MCH 29.4 pg (27.0-33.0); MCHC 33.2 % (32.0-36.0); MCV 89 fL (80-95); MPV 10.5 fL (8.0-11.0); Monocytes % 6.8 %; Neutrophils % 63.5 %; Platelet Count 291 10^3/uL (130-400); RDW 13.2 % (11.7-14.6); RDW-SD 42.9 fL; WBC 11.39 10^3/uL (4.4-10.8)
[2023-09-06 18:43] LABS: Absolute Monocyte Count 0.77 10^3/uL (0.1-0.8); Absolute Neutrophil Count 7.23 10^3/uL (1.2-6.7)
[2023-09-06 18:44] LABS: Bilirubin Negative (Negative); Blood Negative (Negative); Clarity Clear (Clear); Glucose Negative (Negative); Ketones Negative (Negative); Leukocyte Esterase Negative (Negative); Nitrite Negative (Negative); Specific Gravity 1.015 (1.005-1.025); Urobilinogen 0.2 mg/dL (Up to 0.2)
[2023-09-06 18:58] LABS: INR 0.9 (0.9-1.1); PTT Activated 25.9 sec (23.6-32.8); Prothrombin Time 9.5 sec (9.1-11.1)
[2023-09-06 19:05] LABS: NT-proBNP 72 pg/mL (<300)
[2023-09-06 19:06] LABS: ALT 28 U/L (14-59); AST 14 U/L (15-37); Albumin 4.1 g/dL (3.4-5.0); Alkaline Phosphatase 94 U/L (46-116); Anion Gap 13.8 mmol/L (3-11); BUN 13 mg/dL (7-18); Bilirubin, Total 0.55 mg/dL (0.2-1.0); CO2 23.2 mmol/L (21.0-32.0); Calcium 8.8 mg/dL (8.5-10.1); Chloride 105 mmol/L (98-107); Estimated GFR 71.24 (mL/min/1.73m2); Glucose 94 mg/dL (74-106); Potassium 3.3 mmol/L (3.5-5.1); Sodium 142 mmol/L (136-145); TSH (W/Ref FT4) 3.82 uIU/mL (0.36-3.74); Troponin I < 50 ng/L (< or =60)
[2023-09-06 19:18] LABS: D-Dimer 315 ng/mlFEU (<500)
[2023-09-06 19:23] LABS: FREE T4 1.26 ng/dL (0.76-1.46)
[2023-09-06 20:44] VITALS: BP 126/89; PULSE 61; RESP 16; TEMP 36.7; O2SAT 100
== END 2023-09-06 20:45 | disposition home or self-care (01) ==
PROVIDERS: Emergency Provider Emergency Medicine; PCP Nurse Practitioner Family
DX: R55 Syncope and collapse (principal); R06.02 Shortness of breath; R42 Dizziness and giddiness
CPT/HCPCS: 36415; 80053; 81025; 93005; 96360; 99284; 71046; 81003; 83880; 84439; 84443; 84484; 85025; 85379; 85610; 85730; 93010; 99283

== ENCOUNTER → 2023-10-20 15:01 | Outpatient (CLI) | payer OTHER, SELFPAY ==
--- NOTE | 2023-10-20 11:57 | DI.RAD_ITS ---
Exam(s) XR PELVIS AP EXAM: XR PELVIS AP CLINICAL HISTORY: fall, pain, M54.9. TECHNIQUE: 2D digital imaging was performed. Single AP view. COMPARISON: No exams were available for comparison FINDINGS: BONES: No acute fracture is present. No bony destructive lesion is seen. JOINTS: No dislocation present. No joint space narrowing is present. SOFT TISSUE: Normal. IMPRESSION: No acute abnormality. DATA REPOSITORY: RADIATION DOSE DELIVERED:
--- NOTE | 2023-10-20 11:57 | DI.RAD_ITS ---
Exam(s) XR LUMBAR SPINE COMPLETE EXAM: XR LUMBAR SPINE COMPLETE CLINICAL HISTORY: fall, back pain, DORSALGIA, M54.9. TECHNIQUE: 2D digital imaging was performed. Five views. COMPARISON: CR XR PELVIS AP from 10/20/2023 FINDINGS: BONES: No fracture or destructive lesion. Vertebral body heights are maintained. No facet hypertroph y identified. DISKS: Intervertebral disc spaces are maintained. ALIGNMENT: Lumbar spinal alignment is within normal limits. SOFT TISSUE: Normal. IMPRESSION: Unremarkable radiographs of the lumbar spine. DATA REPOSITORY: RADIATION DOSE DELIVERED:
--- NOTE | 2023-10-20 11:57 | DI.RAD_ITS ---
Exam(s) XR THORACIC SPINE COMPLETE EXAM: XR THORACIC SPINE COMPLETE CLINICAL HISTORY: back pain, fall, DORSALGIA, M54.9. TECHNIQUE: 2D digital imaging was performed. Three views. COMPARISON: CR XR CHEST 2V PA LATERAL from 04/10/2023 CR XR CHEST 2V PA LATERAL from 09/06/2023 FINDINGS: BONES: There is no fracture or destructive lesion. The vertebral bodies and posterior elements are un remarkable. ALIGNMENT: Within normal limits. DISKS: Interverebral disc spaces are maintained. Small endplate osteophytes in the mid thoracic reg ion. SOFT TISSUE: Visualized lungs are clear. IMPRESSION: Mild degenerative changes. No acute abnormality. DATA REPOSITORY: RADIATION DOSE DELIVERED:
== END ==
PROVIDERS: PCP Nurse Practitioner Family; Visit Provider Physician Assistant
DX: M54.9 Dorsalgia, unspecified (principal)
CPT/HCPCS: 72072; 72110; 72170

== ENCOUNTER 2023-12-06 02:20 | Outpatient (CLI) | payer OTHER, SELFPAY ==
--- NOTE | 2023-12-06 10:00 | DI.MRI_ITS ---
Exam(s) MR THORACIC SPINE WO EXAM: MR THORACIC SPINE WO CLINICAL HISTORY: evaluate pathology,thoracic back pain,m54.6. TECHNIQUE: Multiplanar multisequence MRI of the Thoracic spine was performed. COMPARISON: CR XR THORACIC SPINE COMPLETE from 10/20/2023 FINDINGS: Bones: The vertebral body heights are well maintained. Minimal anterior endplate osteophytes in the mid thoracic region. Alignment is satisfactory. The marrow signal characteristics are unremarkable. Cord: The thoracic cord is normal size and signal intensity. No intrinsic cord lesion is present. Soft tissues: Normal. C6-7: Endplate osteophytes projecting circumferentially. Some narrowing of the AP dimension of the c entral canal. No neural foraminal narrowing. No focal disc herniation. C7-T1: No disc herniation or bulge is identified. T1-2: No disc herniation or bulge is identified. T2-3: No disc herniation or disc bulging is identified. T3-4: No disc herniation. Minimal posterior disc bulging. T4-5: No disc herniation. Minimal posterior disc bulging. T5-6: No disc herniation or bulge is identified. T6-7: No disc herniation or bulge is identified. T7-8: No disc herniation or bulge is identified. T8-9: No disc herniation or bulge is identified. T9-10: No disc herniation or bulge is identified. Left side facet osteophyte projects slightly into central canal. No central canal stenosis or neural foraminal narrowing. T10-11:No disc herniation or bulge is identified. T11-12: No disc herniation or bulge is identified. T12-L1: No disc herniations or bulges are present. IMPRESSION: [id number] degenerative disc changes at C6-7. Minimal disc osteophytes at T 3 -4 and T4-5. Left-sided facet osteophyte at T9-10. DATA REPOSITORY:
== END 2023-12-06 02:40 ==
LOC: DI 02:20
PROVIDERS: PCP Nurse Practitioner Family; Visit Provider Nurse Practitioner Family
DX: M54.6 Pain in thoracic spine (principal)
CPT/HCPCS: 72146

== ENCOUNTER 2024-01-15 19:40 | Emergency (ER) | payer OTHER, SELFPAY ==
[2024-01-15 19:43] VITALS: BP 135/82; PULSE 66; RESP 18; TEMP 36.6; O2SAT 100
--- NOTE | 2024-01-15 19:45 | DI.CT_ITS ---
Exam(s) CT ABDOMEN PELVIS W EXAM: CT ABDOMEN PELVIS W CLINICAL HISTORY: ruq pain and right flank pain. TECHNIQUE: Imaging Protocol: Axial computed tomography images with coronal and sagittal reformatted images were created and reviewed CONTRAST MATERIAL: Intravenous: Omnipaque 350 Contrast volume:100 ml Oral: / no COMPARISON: No exams were available for comparison FINDINGS: ABDOMEN and PELVIS: Lung Bases: No acute findings. Liver: Normal density. No suspicious mass. Gallbladder and biliary tract: No radiodense calculus. No biliary dilation. Pancreas: Normal density. No abnormal calcifications or inflammatory process. No evidence of mass. Spleen: Normal. Kidneys: Normal size, contour and axis. No radiodense stones. No obstructive uropathy. No suspicious masses seen. Adrenal glands: No masses seen. Vasculature: Abdominal aorta non-dilated. Soft tissues: Tiny umbilical hernia. Fatty hernia in the midline above the umbilical region without e vidence of strangulation. Bladder: No gross wall thickening. No calculi.No focal mass. Bowel: No obstruction. No bowel wall thickening. Appendix normal. Peritoneal cavity: No ascites. No focal collection. No mesenteric inflammatory response. Bones: Unremarkable for age. Reproductive organs: Unremarkable. Lymph nodes: No pathologically enlarged lymph nodes. IMPRESSION:: No acute abnormality in the abdomen or pelvis. RADIATION DOSE DELIVERED: 786.63mGy.cm Total DLP DATA REPOSITORY: All CT scans at this facility are submitted to the National Radiology Data Registry (NRDR) Dose Index Registry (DIR) with the [employer] (ACR). RADIATION OPTIMIZATION: All CT scans at this facility use at least one of these dose optimization te chniques: automated exposure control; mA and/or kV adjustment per patient size (includes targeted exa ms where dose is matched to clinical indication); or iterative reconstruction.
--- NOTE | 2024-01-15 19:52 | W.ED.GENAD ---
Discharge Plan Disposition Patient Disposition: Home Condition: Good Discharge Details Chief Complaint: Abd Prob Clinical Impression: Pelvic congestion syndrome, Abdominal pain Primary Care Provider: Jama Barrientos ED Provider: Jeovany Yin Home Meds and New Rx's Prescriptions: No Action epinephrine [EpiPen] 0.3 mg/0.3 mL auto-injector 0.3 mg IM ONCE Qty: 1 0RF cholecalciferol (vitamin D3) 25 mcg (1,000 unit) capsule 25 mcg PO DAILY biotin 2,500 mcg capsule 2,500 mcg PO DAILY Saccharomyces boulardii [Daily Probiotic (S. boulardii)] 250 mg capsule 250 mg PO BID Qty: 60 0RF Rx Instructions: Take 1 capsule every 12 hours x 30days fexofenadine 180 mg tablet 180 mg PO DAILY levothyroxine 137 mcg tablet 137 mcg PO DAILY Qty: 90 3RF Rx Instructions: 137 mcg orally daily; cephalexin 250 mg capsule 250 mg PO ONCE PRN (Reason: UTI prophylaxis) Qty: 20 1RF Rx Instructions: take immediately prior to or after sexual activity to prevent UTI cranberry 500 mg capsule 1,500 mg PO DAILY Rx Instructions: administer with meals Zyrtec 10 mg capsule 10 mg PO DAILY budesonide-formoterol [Symbicort] 160-4.5 mcg/actuation HFA aerosol inhaler 2 puff IH Q12H Qty: 10.2 11RF fluticasone propionate [Allergy Relief (fluticasone)] 50 mcg/actuation spray,suspension 2 spray intranasal DAILY Qty: 16 6RF Rx Instructions: administer into each nostril albuterol sulfate [ProAir HFA] 90 mcg/actuation HFA aerosol inhaler 2 puff IH 6XD PRN (Reason: shortness of breath or wheezing) Qty: 18 0RF One-A-Day -1 27 mg iron- 800 mcg-235 mg capsule 1 cap PO DAILY Qty: 90 4RF omeprazole 20 mg capsule,delayed release(DR/EC) 20 mg PO DAILY Qty: 90 4RF dexmethylphenidate [Focalin XR] 30 mg capsule,ER biphasic 50-50 30 mg PO DAILY MDD 1 capsule daily Qty: 28 0RF M- Plus 27 mg iron- 1 mg tablet 1 tab PO DAILY Patient Comments: TAKE ONE TABLET BY MOUTH EVERY DAY Discharge Instructions Instructions: Abdominal Pain, Adult ED Additional Instructions: At this time your CAT scan shows evidence of mild pelvic congestion syndrome. Please take 600 mg of ibuprofen every 6-8 hours. Please avoid any spicy food, greasy foods, or tomato-based products as this may cause gallbladder or stomach irritation. If you notice any worsening of your symptoms, or any new symptoms such as vomiting, diarrhea, fever, chills, shortness of breath, chest pain, numbness, weakness, or fainting , please return immediately to the emergency department for reevaluation. Please follow up with your primary care provider as soon as possible for reassessment and reevaluation. As always, it was a pleasure participating in your medical care today. Referrals: Jama Barrientos NP [Primary Care Provider] - Jaren Willingham [ NON-[facility] STAFF PHYSICIAN] - [facility] General Date/Time Provider Initiated Documentation: 01/15/24 19:41. [facility] Narrative: This is a 43-year-old female with past medical history of GERD, hypothyroidism, asthma, who presents today for evaluation of abdominal pain. Patient states that yesterday she had achiness in the suprapubic urinary areas. Which has continued. However she states that today the pain transition to the right flank in the epigastric region. It was dull and achy, will have episodes of sharp stabbing sensation. She has not eaten anything for dinner yet tonight. She denies any fever or chills. She denies any vomiting or diarrhea. She did state that she had intercourse on , and she has been told to take 1 antibiotic pill of 250 Keflex every time post intercourse secondary to her history of previous UTIs. She took 2 of those and it did not change her symptoms. She has no other complaints at this time. No other modifying factors. She denies any chest pain or shortness of breath. Related Data Home Medications ?Medication ?Instructions ?Recorded ?Confirmed cetirizine 10 mg capsule (Zyrtec) 10 mg PO DAILY 04/05/19 01/15/24 epinephrine 0.3 mg/0.3 mL 0.3 mg (0.3 mL) IM ONCE #1 ea 11/20/20 01/15/24 injection, auto-injector (EpiPen) biotin 2,500 mcg capsule 2,500 mcg PO DAILY 06/03/21 01/15/24 cholecalciferol (vitamin D3) 25 25 mcg PO DAILY 06/03/21 01/15/24 mcg (1,000 unit) capsule budesonide-formoterol HFA 160 2 puff inhalation Q12H #10.2 grams 11/25/21 01/15/24 mcg-4.5 mcg/actuation aerosol inhaler (Symbicort) Saccharomyces boulardii 250 mg 250 mg PO BID #60 caps 02/08/22 01/15/24 capsule (Daily Probiotic (S. boulardii)) fluticasone propionate 50 2 spray intranasal DAILY #16 grams 09/02/22 01/15/24 mcg/actuation nasal spray,suspension (Allergy Relief (fluticasone)) fexofenadine 180 mg tablet 180 mg PO DAILY 09/17/22 01/15/24 levothyroxine 137 mcg tablet 137 mcg PO DAILY #90 tabs 02/13/23 01/15/24 cranberry 500 mg capsule 1,500 mg PO DAILY 05/08/23 01/15/24 albuterol sulfate 90 mcg/actuation 2 puff inhalation 6XD PRN 08/04/23 01/15/24 aerosol inhaler (ProAir HFA) shortness of breath or wheezing #18 grams cephalexin 250 mg capsule 250 mg PO ONCE PRN UTI prophylaxis 08/21/23 01/15/24 #20 caps vit 168-iron 27 mg-folic 1 cap PO DAILY #90 caps 09/01/23 01/15/24 acid 800 mcg-omega3 235 mg capsule (One-A-Day -1) vitamin with calcium 1 tab PO DAILY 09/06/23 01/15/24 no.72-iron 27 mg-folic acid 1 mg tablet (M-Willow Plus) omeprazole 20 mg capsule,delayed 20 mg PO DAILY #90 caps 10/20/23 01/15/24 release dexmethylphenidate 30 mg 30 mg PO DAILY #28 caps 12/28/23 01/15/24 capsule,extended release [id number] (Focalin XR) Previous Rx's ?Medication ?Instructions ?Recorded epinephrine 0.3 mg/0.3 mL 0.3 mg (0.3 mL) IM ONCE #1 ea 11/20/20 injection, auto-injector (EpiPen) budesonide-formoterol HFA 160 2 puff inhalation Q12H #10.2 grams 11/25/21 mcg-4.5 mcg/actuation aerosol inhaler (Symbicort) Saccharomyces boulardii 250 mg 250 mg PO BID #60 caps 02/08/22 capsule (Daily Probiotic (S. boulardii)) fluticasone propionate 50 2 spray intranasal DAILY #16 grams 09/02/22 mcg/actuation nasal spray,suspension (Allergy Relief (fluticasone)) levothyroxine 137 mcg tablet 137 mcg PO DAILY #90 tabs 02/13/23 albuterol sulfate 90 mcg/actuation 2 puff inhalation 6XD PRN 08/04/23 aerosol inhaler (ProAir HFA) shortness of breath or wheezing #18 grams cephalexin 250 mg capsule 250 mg PO ONCE PRN UTI prophylaxis 08/21/23 #20 caps vit 168-iron 27 mg-folic 1 cap PO DAILY #90 caps 09/01/23 acid 800 mcg-omega3 235 mg capsule (One-A-Day -1) omeprazole 20 mg capsule,delayed 20 mg PO DAILY #90 caps 10/20/23 release dexmethylphenidate 30 mg 30 mg PO DAILY #28 caps 12/28/23 capsule,extended release [id number] (Focalin XR) Allergies Allergy/AdvReac Type Severity Reaction Status Date / Time poison lula extract (Poison Allergy Mild Anaphylaxsi Verified 01/15/24 19:50 Lula Extract) s hair dye Allergy Intermediate Itching Uncoded 01/15/24 19:50 General Stated Complaint: Abd Prob MYRANDA: 3 Review of Systems All systems reviewed & are unremarkable except as noted in HPI and below Exam Narrative Exam Narrative: 1.Const: Well-nourished, Well-developed, appearing stated age 2.Eyes: PERRL, no conjunctival injection, and symmetrical lids. 3.ENT: Atraumatic external nose and ears. Moist MM. Neck: Symmetric, trachea midline, No thyromegaly. 4.CVS: +S1/S2, Peripheral pulses 2+ and equal in all extremities. Brisk capillary refill in all extremities. 5.RESP: Unlabored respiratory effort. Clear to auscultation bilaterally. No wheezes rales or rhonchi 6.GI: Mild epigastric and right upper quadrant discomfort, mild right lower quadrant discomfort. Negative Rovsing sign. Mild right-sided CVA tenderness 7.MSK: Normocephalic/Atraumatic, Extremities w/o deformity or ttp No cyanosis or clubbing, Normal movement of all extremities 8.Skin: Warm, Dry. No rashes or lesions. 9.Neuro: computer support specialist II-XII grossly intact. Sensation grossly intact, no focal neurologic deficits. 10.Psych: (AAO) x3. Appropriate mood and affect Course Vital Signs Vital signs: Vital Signs Temperature 36.6 C 01/15/24 19:43 Pulse 66 01/15/24 19:43 Respiratory Rate 18 01/15/24 19:43 Blood Pressure 135/82 01/15/24 19:43 Pulse Oximetry 100 01/15/24 19:43 Temperature 36.6 C 01/15/24 19:43 Pulse 66 01/15/24 19:43 Respiratory Rate 18 01/15/24 19:43 Respiratory Effort Normal, Non-Labored 01/15/24 19:50 Blood Pressure 135/82 01/15/24 19:43 Pulse Oximetry 100 01/15/24 19:43 Oxygen Delivery Method Room Air 01/15/24 19:43 Oxygen Flow Rate 0 01/15/24 19:43 Pain Level 6 01/15/24 19:43 Medical Decision Making This is a 43-year-old female with past medical history of GERD, hypothyroidism, asthma, who presents today for evaluation of abdominal pain. Patient states that yesterday she had achiness in the suprapubic urinary areas. Which has continued. However she states that today the pain transition to the right flank in the epigastric region. It was dull and achy, will have episodes of sharp stabbing sensation. She has not eaten anything for dinner yet tonight. She denies any fever or chills. She denies any vomiting or diarrhea. She did state that she had intercourse on , and she has been told to take 1 antibiotic pill of 250 Keflex every time post intercourse secondary to her history of previous UTIs. She took 2 of those and it did not change her symptoms. She has no other complaints at this time. No other modifying factors. She denies any chest pain or shortness of breath. Exam demonstrates right upper right lower and epigastric discomfort as well as right mild CVA tenderness. Differential includes cholecystitis, biliary colic, pancreatitis, less likely appendicitis. Pyelonephritis UTI and kidney stone are on the differential. We will evaluate for these etiologies, treat with Toradol and over move, monitor closely and reassess. 9:50 PM On reassessment the patient is feeling much better. Her symptoms have resolved for the most part. She continues to deny any vaginal discharge. She states that after the Toradol she has had resolution. No bandemia. No significant white count elevation. Lactate normal. Electrolytes stable. Potassium minimally low at 3.3, but no need for emergent replacement. Lipase is normal. Urinalysis is negative, no evidence of infection or blood. On reassessment the patient remains notably stable. Patient CT scan demonstrates a 3 mm calcification adjacent to the right UVJ, which is likely a phlebolith, urinalysis is inconsistent with urolithiasis. She also has evidence of mild gonadal vein dilatation without thrombosis, suggestive of pelvic congestion syndrome. Otherwise remainder of her findings are unremarkable and stable. Patient may have had biliary spasm which brought about her initial symptoms, no evidence of pancreatitis, cholecystitis, ascending cholangitis, or cholelithiasis of significance. Her pelvic congestion syndrome may certainly have been the component of the lower abdominal symptomatology that she was having. No evidence to suggest torsion, tubo-ovarian abscess, PID, or appendicitis, urolithiasis, or pyelonephritis or UTI. As the patient's symptoms have resolved, we will recommend continued NSAID therapy at home, diet that is avoiding fatty greasy or tomato-based or spicy products. Recommend close follow-up with her PCP or obstetrics. Discussed red flags for which to return. I have extensively reviewed the treatment plan and discharge instructions with the patient. I have addressed all patient concerns at this time. The patient was made aware of what symptoms to monitor for that would warrant a return to the emergency department. Discussed the plan with the patient, they demonstrate verbal understanding and agreement with our assessment and plan at this time. The documentation in this chart was dictated using [employer] dictation software. Please excuse any dictation errors. FINDINGS: Lungs: Visualized lung bases are clear. Heart: Heart size normal. Esophagus: The visualized distal esophagus is largely contracted without gross abnormality. Liver: Normal contour. No mass lesions. No intrahepatic biliary ductal dilatation. Gallbladder and biliary ducts: Normal. No calcified stones. No ductal dilation. Pancreas: Normal. No inflammatory changes or ductal dilation. Spleen: Normal. No splenomegaly. Adrenal glands: Normal. No adrenal mass. Kidneys and ureters: No hydronephrosis. There is a 3 mm calcification adjacent to the right UVJ however it is not felt to be intraluminal and more consistent with a phlebolith, with no obstructive urolithiasis identified currently. The left kidney and left collecting system are unremarkable. Stomach and bowel: The stomach is largely contracted. The small bowel is nondilated with no gross abnormality. No acute colonic abnormalities. Appendix: The appendix is normal in caliber and demonstrates no evidence of appendicitis. Intraperitoneal space: No peritoneal free fluid or air. Vasculature: Right gonadal vein show short segment mild dilatation reaching 10 mm diameter with no evidence of thrombosis, with slightly prominent right adnexal veins, question mild changes of pelvic congestion syndrome. Lymph nodes: No adenopathy. Urinary bladder: Unremarkable as visualized. Reproductive: Unremarkable as visualized. Bones/joints: No acute osseous abnormalities. Soft tissues: Small fatty hernia in the midline epigastric region, and small fatty umbilical hernia, with no bowel herniation or features of strangulation. IMPRESSION: 1. No definite acute process. 2. A 3 mm calcification adjacent to the right UVJ is felt to represent a phlebolith, with no hydronephrosis or urolithiasis identified. 3. Right gonadal vein demonstrates short segment mild dilatation without thrombosis, with slightly prominent right adnexal veins, consider mild changes of pelvic congestion syndrome. 4. Additional nonemergent findings detailed above. Thank you for allowing us to participate in the care of your patient. Dictated and Authenticated by: Teofilo Sanchez MD 01/15/2024 9:31 PM Eastern Time ([place] & [place]) Quality:SDOH Health Related Social Needs: No Data to Display PFSH All Active Problems (Updated 01/15/24 @ 21:49 by Jeovany Yin DO) Abdominal pain (Acute) Pelvic congestion syndrome (Acute) Back pain (Acute) Stress incontinence (Acute) Vulvar itching (Acute) Shortness of breath (Acute) Skin lesion of face (Acute) Contraception management (Acute) Recurrent UTI (Acute) Morbid obesity (Acute) Family history of colon cancer (Acute) Screening for colon cancer (Acute) Chronic GERD (Acute) Family history of secondary colorectal cancer (Acute) Diarrhea (Acute) COVID-19 (Acute ~04/08/21) Prediabetes (Acute) Dysphagia (Acute) 12/2020- Barium swallow negative Bilateral tinnitus (Acute) Carpal tunnel syndrome (Acute) left Decreased hearing (Acute) ADHD (Acute) Hypothyroid (Chronic) Asthma (Chronic) Medical History Strep pharyngitis Asthma Postnasal drip (11/11/13) Breathing difficulty (11/11/13) Allergic rhinitis due to other allergen (12/23/13) Allergic rhinitis (11/11/13) Allergic reaction (12/23/13) Abnormal auditory perception (05/21/15) Surgical History History of colonoscopy with polypectomy (~11/23/21) benign History of open reduction and internal fixation (ORIF) procedure right elbow Family History Mother Hyperlipidemia Father Heart disease Brother Hyperlipidemia Brother , age 39 Depression Son No problems noted. Daughter No problems noted. Maternal Grandfather , age 92 No problems noted. Paternal Grandfather , age 91 Lung cancer Maternal Grandmother Colon cancer Paternal Grandmother , age 89 Heart disease Social History Smoking/Tobacco Use Status: Never Second Hand Exposure: Yes Smoking risk assessment performed?: Yes Alcohol Intake: current Alcohol Intake frequency: holidays/special occasions only Alcohol type: hard liquor Drug use: Never Substance use type: does not use Adopted: No Caregiver/Support person: No Foster care: No Household members: spouse and children Housing: house Communication Needs: Hard of Hearing Do you need help understanding health information?: Never Pets and animals: Yes Pets and animals: dog(s) Sexually active: Yes Do you think of yourself as: straight/heterosexual Current gender identity: female What is your relationship status?: How often do you talk on the phone with friends or family?: three or more times per week How often do you get together with friends or relatives?: once per week How often do you attend latter day or nondenominational services?: decline to answer Do you belong to any clubs or organized social groups?: yes Panel score (0-1 are the most socially isolated patients): 3 What type of physical activity do you participate in: walking and other Details: stairs at work Duration: 30-45 minutes/day Frequency: 3-4 times per week Zabrina/Sikh: Bahai Special zabrina needs: No Seatbelt use: always Helmet use: Yes Helmet use: always Drive intox or ride w/intox bulk driver: No Do you feel safe at home: Yes Do you feel safe in your relationship?: Yes
[2024-01-15 20:05] VITALS: BP 135/82; PULSE 66; RESP 18; TEMP 36.6; O2SAT 100
[2024-01-15] MEDS: Ketorolac 15 MG/ML VIAL IVP (20:18)
[2024-01-15 20:20] LABS: Lactate 1.3 mmol/L (0.6-1.4)
[2024-01-15] MEDS: Normal Saline Flush 10 ML SYR IVP (20:22)
[2024-01-15 20:23] LABS: Abs Immature Grans 0.03 10^3/uL (0.0-0.06); Absolute Basophil Count 0.04 10^3/uL (0.0-0.2); Absolute Eosinophil Count 0.52 10^3/uL (0.0-0.7); Absolute Lymphocyte Count 3.63 10^3/uL (1.2-3.4); Absolute Monocyte Count 0.96 10^3/uL (0.1-0.8); Basophils % 0.3 %; Eosinophils % 4.3 %; HCT 39.6 % (36.0-46.0); HGB 13.2 g/dL (11.2-15.7); Immature Grans % 0.3 %; Lymphocytes % 30.3 %; MCH 29.1 pg (27.0-33.0); MCHC 33.3 % (32.0-36.0); MCV 87 fL (80-95); MPV 10.1 fL (8.0-11.0); Neutrophils % 56.8 %; Platelet Count 320 10^3/uL (130-400); RBC 4.54 10^6/uL (3.93-5.22); RDW 12.5 % (11.7-14.6); RDW-SD 39.8 fL; WBC 11.98 10^3/uL (4.4-10.8)
[2024-01-15] MEDS: Omnipaque 350 MG/ML 100 ML BTL IJ (20:23)
[2024-01-15] MEDS: Normal Saline - Diluent 50 ML VIAL IJ (20:24)
[2024-01-15 20:32] LABS: Bilirubin Negative (Negative); Blood Negative (Negative); Clarity Clear (Clear); Glucose Negative (Negative); Ketones Negative (Negative); Leukocyte Esterase Negative (Negative); Nitrite Negative (Negative); Urobilinogen 0.2 mg/dL (Up to 0.2)
[2024-01-15 20:44] LABS: ALT 27 U/L (14-59); AST 19 U/L (15-37); Albumin 3.9 g/dL (3.4-5.0); Alkaline Phosphatase 90 U/L (46-116); Anion Gap 10.4 mmol/L (3-11); BUN 13 mg/dL (7-18); Bilirubin, Total 0.65 mg/dL (0.2-1.0); CO2 24.6 mmol/L (21.0-32.0); CREATININE 0.8 mg/dL (0.55-1.02); Calcium 9.2 mg/dL (8.5-10.1); Chloride 104 mmol/L (98-107); Estimated GFR 93.12 (mL/min/1.73m2); Glucose 98 mg/dL (74-106); Lipase 29 U/L (16-77); Potassium 3.3 mmol/L (3.5-5.1); Sodium 139 mmol/L (136-145); Total Protein 7.8 g/dL (6.4-8.2)
--- NOTE | 2024-01-15 21:32 | DI.VRAD_ITS ---
PROCEDURE INFORMATION: Exam: CT Abdomen And Pelvis With Contrast Exam date and time: 01/15/2024 8:22 PM Age: 43 years old Clinical indication: Abdominal pain; Patient HX: Ruq pain, R flank pain TECHNIQUE: Imaging protocol: Computed tomography of the abdomen and pelvis with contrast. Radiation optimization: All CT scans at this facility use at least one of these dose optimization techniques: automated exposure control; mA and/or kV adjustment per patient size (includes targeted exams where dose is matched to clinical indication); or iterative reconstruction. Contrast material: OMNIPAQUE 350; Contrast volume: 100 ml; Contrast route: INTRAVENOUS (IV); COMPARISON: CR XR PELVIS AP 10/20/2023 11:33 AM FINDINGS: Lungs: Visualized lung bases are clear. Heart: Heart size normal. Esophagus: The visualized distal esophagus is largely contracted without gross abnormality. Liver: Normal contour. No mass lesions. No intrahepatic biliary ductal dilatation. Gallbladder and biliary ducts: Normal. No calcified stones. No ductal dilation. Pancreas: Normal. No inflammatory changes or ductal dilation. Spleen: Normal. No splenomegaly. Adrenal glands: Normal. No adrenal mass. Kidneys and ureters: No hydronephrosis. There is a 3 mm calcification adjacent to the right UVJ however it is not felt to be intraluminal and more consistent with a phlebolith, with no obstructive urolithiasis identified currently. The left kidney and left collecting system are unremarkable. Stomach and bowel: The stomach is largely contracted. The small bowel is nondilated with no gross abnormality. No acute colonic abnormalities. Appendix: The appendix is normal in caliber and demonstrates no evidence of appendicitis. Intraperitoneal space: No peritoneal free fluid or air. Vasculature: Right gonadal vein show short segment mild dilatation reaching 10 mm diameter with no evidence of thrombosis, with slightly prominent right adnexal veins, question mild changes of pelvic congestion syndrome. Lymph nodes: No adenopathy. Urinary bladder: Unremarkable as visualized. Reproductive: Unremarkable as visualized. Bones/joints: No acute osseous abnormalities. Soft tissues: Small fatty hernia in the midline epigastric region, and small fatty umbilical hernia, with no bowel herniation or features of strangulation. IMPRESSION: 1. No definite acute process. 2. A 3 mm calcification adjacent to the right UVJ is felt to represent a phlebolith, with no hydronephrosis or urolithiasis identified. 3. Right gonadal vein demonstrates short segment mild dilatation without thrombosis, with slightly prominent right adnexal veins, consider mild changes of pelvic congestion syndrome. 4. Additional nonemergent findings detailed above. Dictated and Authenticated by: Teofilo Sanchez MD. Ordering:SHILPI Thayer MD
[2024-01-15 21:55] VITALS: BP 127/74; PULSE 61; RESP 16; TEMP 36.6; O2SAT 100
== END 2024-01-15 22:11 | disposition home or self-care (01) ==
PROVIDERS: Emergency Provider Student in an Organized Health Care Education/Training Program; PCP Nurse Practitioner Family
DX: N94.89 Other specified conditions associated with female genital organs and menstrual cycle (principal); R10.13 Epigastric pain
CPT/HCPCS: 80053; 81025; 83690; 96374; 99285; 74177; 81003; 83605; 85025; 99284; J1885; J3490

== ENCOUNTER 2024-04-23 01:14 | Outpatient (CLI) | payer OTHER, SELFPAY | END 2024-04-23 01:15 | disposition home or self-care (01) | PROVIDERS: PCP Nurse Practitioner Family; Visit Provider Nurse Practitioner Family | DX: E03.9 Hypothyroidism, unspecified (principal) | CPT/HCPCS: 36415; 84443 ==

== ENCOUNTER 2024-09-03 03:40 | Outpatient (CLI) | payer OTHER, SELFPAY ==
[2024-09-03] MEDS: Methacholine 100 MG VIAL IH (11:36)
[2024-09-03] MEDS: Albuterol HFA 18 GM 200 PUFF INH IH (11:36)
[2024-09-03] MEDS: Inhaler, Assist Device 1 EACH MC (11:36)
--- NOTE | 2024-09-08 15:04 | W.PFT ---
Date of service: 09/03/24 Time of Service: 08:04 Pulmonary Function Test Result Indications: Asthma Interpretation Spirometry: Normal airflow limitation at baseline. There was a 1% decrease in FEV1 with 16mg/mL methacholine Impression Negative methacholine challenge Clinical Correlation therefore is recommended.
== END 2024-09-03 03:41 | disposition home or self-care (01) ==
LOC: RT 03:40
PROVIDERS: PCP Nurse Practitioner Family; Visit Provider Student in an Organized Health Care Education/Training Program
DX: J45.40 Moderate persistent asthma, uncomplicated (principal)
CPT/HCPCS: 94070; 95070; J7674

== ENCOUNTER 2024-10-01 03:14 | Outpatient (CLI) | payer OTHER, SELFPAY ==
--- NOTE | 2024-10-01 08:17 | DI.MAMMO_ITS ---
Exam(s) MAMMO SCREENING EXAM: MAMMO SCREENING CLINICAL HISTORY: screening,z12.39 TECHNIQUE: Bilateral full field digital CC and MLO mammographic images were obtained with 3D tomosynthesis and utilizing computer aided detection (CAD). COMPARISON: Comparison is made with prior examinations. FINDINGS: Masses/Architectural Distortion: No suspicious masses or areas of architectural distortion are present. Microcalcifications: No suspicious pleomorphic-type are seen. Skin Thickening/Nipple Retraction: None. IMPRESSION: 1. No significant interval change with no specific features of malignancy noted. 2. Unless there is more urgent need, screening mammography is recommended, as per [place] [employer] guidelines. BI-RADS Category 1 - Negative Breast Density - Category B - There are scattered areas of fibroglandular density. Breast density Category C or D implies that the patient has dense breast tissue. Dense breast tissue can make it harder to find cancer on a mammogram. Dense breast tissue is also associated with an increased risk of breast cancer. This information about the result of the mammogram report was provided to the patient to raise their awareness. Use this report when you speak with the patient about their risks for breast cancer, which includes their family history. At that time, you may recommend additional screening tests (Ultrasound or MRI) as these tests may add significant information. A negative radiographic report should not delay biopsy if a dominant or clinically suspicious mass is present. Up to ten percent of cancers are not identified on mammography. A negative report may reinforce clinical impression. Adenosis and dense breasts may obscure an underlying neoplasm. False positive reports average 6 to 10%. Patient will receive a letter notifying them of these results.
== END 2024-10-01 03:34 ==
LOC: DI 03:14
PROVIDERS: PCP Nurse Practitioner Family; Visit Provider Nurse Practitioner Family
DX: Z12.31 Encounter for screening mammogram for malignant neoplasm of breast (principal); R92.323 Mammographic fibroglandular density, bilateral breasts
CPT/HCPCS: 77063; 77067

== ENCOUNTER 2024-10-04 01:01 | Outpatient (CLI) | payer OTHER, SELFPAY ==
[2024-10-04 08:48] LABS: ALT 27 U/L (14-59); AST 17 U/L (15-37); Albumin 3.7 g/dL (3.4-5.0); Alkaline Phosphatase 108 U/L (46-116); Anion Gap 9.4 mmol/L (3-11); BUN 16 mg/dL (7-18); Bilirubin, Total 0.6 mg/dL (0.2-1.0); CO2 27.6 mmol/L (21.0-32.0); Calcium 9.0 mg/dL (8.5-10.1); Chloride 103 mmol/L (98-107); Estimated GFR 108.62 (mL/min/1.73m2); Glucose 112 mg/dL (74-106); Potassium 4.3 mmol/L (3.5-5.1); Sodium 140 mmol/L (136-145); TSH 1.22 uIU/mL (0.36-3.74); Total Protein 7.4 g/dL (6.4-8.2)
[2024-10-04 18:40] LABS: T3,Free 3.8 pg/mL (2.8-5.3)
[2024-10-04 19:23] LABS: FSH 4.8 mIU/mL (See Note)
[2024-10-10 17:01] LABS: T3 (Triiodothyronine) Reverse 19 ng/dL (10-24)
== END 2024-10-04 01:02 | disposition home or self-care (01) ==
LOC: LBO 01:01
PROVIDERS: PCP Nurse Practitioner Family; Visit Provider Nurse Practitioner Family
DX: R68.89 Other general symptoms and signs (principal)
CPT/HCPCS: 36415; 80053; 86376; 82670; 83001; 84144; 84439; 84443; 84481; 84482

== ENCOUNTER 2024-12-19 10:29 | Outpatient (REF) | payer OTHER, SELFPAY ==
[2024-12-19 17:06] LABS: Glucose Negative (Negative)
[2024-12-19 17:17] LABS: C & S Indicated? Yes; RBC 0-2 HPF (0-2)
== END 2024-12-19 10:30 | disposition home or self-care (01) ==
LOC: LBN 10:29
PROVIDERS: PCP Nurse Practitioner Family; Visit Provider Nurse Practitioner Family
DX: R39.9 Unspecified symptoms and signs involving the genitourinary system (principal)
CPT/HCPCS: 81003; 81015; 87086

== ENCOUNTER 2025-01-13 14:28 | Outpatient (REF) | payer OTHER, SELFPAY | END 2025-01-13 14:29 | disposition home or self-care (01) | LOC: LBN 14:28 | PROVIDERS: PCP Nurse Practitioner Family; Visit Provider Nurse Practitioner Family | DX: N76.0 Acute vaginitis (principal) | CPT/HCPCS: 87480; 87510; 87660 ==

== ENCOUNTER 2025-01-19 21:51 | Emergency (ER) | payer OTHER, SELFPAY ==
[2025-01-19 21:54] VITALS: BP 119/75; PULSE 63; RESP 18; TEMP 36.7; O2SAT 97
[2025-01-19] MEDS: Lidocaine 4% Cream 5 GM TUBE TP (23:00)
--- NOTE | 2025-01-19 23:08 | W.ED.GENAD ---
Discharge Plan Disposition Patient Disposition: Home Condition: Improving Discharge Details Clinical Impression: Vulvar itching, Candidiasis of anus, Candidiasis of genitalia in female Primary Care Provider: Jama Barrientos ED Provider: Lefty Ng Home Meds and New Rx's Prescriptions: New fluconazole 200 mg tablet 200 mg PO ONCE Qty: 3 0RF Rx Instructions: one tablet on MondayJanuary 21, one tablet on MondayJanuary 28, and one tablet on MondayFebruary 04 prednisone 10 mg tablet 10 mg PO DAILY Qty: 3 0RF lidocaine [LMX 4] 4 % cream 1 applic topical QID PRN (Reason: pain) Qty: 28 0RF Rx Instructions: apply a thin amount to areas of discomfort No Action budesonide-formoterol [Symbicort] 160-4.5 mcg/actuation HFA aerosol inhaler 2 puff IH Q12H Qty: 10.2 11RF fluconazole 150 mg tablet 150 mg PO Q3D 0 Days Qty: 2 0RF Rx Instructions: may repeat second dose 72 hrs after first dose if symptoms persist epinephrine [EpiPen] 0.3 mg/0.3 mL auto-injector 0.3 mg IM ONCE Qty: 1 0RF cholecalciferol (vitamin D3) 25 mcg (1,000 unit) capsule 25 mcg PO DAILY biotin 2,500 mcg capsule 2,500 mcg PO DAILY Saccharomyces boulardii [Daily Probiotic (S. boulardii)] 250 mg capsule 250 mg PO BID Qty: 60 0RF Rx Instructions: Take 1 capsule every 12 hours x 30days fexofenadine 180 mg tablet 180 mg PO DAILY albuterol sulfate 90 mcg/actuation HFA aerosol inhaler 2 puff IH 6XD PRN (Reason: shortness of breath or wheezing) Qty: 18 0RF fluconazole 150 mg tablet 150 mg PO ONCE Qty: 1 1RF Rx Instructions: as a single dose. Repeat in one week if needed Zyrtec 10 mg capsule 10 mg PO DAILY Qty: 90 4RF fluticasone propionate [Allergy Relief (fluticasone)] 50 mcg/actuation spray,suspension 2 spray intranasal DAILY Qty: 16 6RF Rx Instructions: administer into each nostril cephalexin 250 mg capsule 250 mg PO ONCE PRN (Reason: UTI prophylaxis) Qty: 20 1RF Rx Instructions: take immediately prior to or after sexual activity to prevent UTI M- Plus 27 mg iron- 1 mg tablet 1 tab PO DAILY Qty: 90 4RF levothyroxine 137 mcg tablet 137 mcg PO DAILY Qty: 90 3RF Rx Instructions: 137 mcg orally daily; omeprazole 20 mg capsule,delayed release(DR/EC) 20 mg PO DAILY Qty: 90 4RF fluoxetine 40 mg capsule 40 mg PO DAILY Qty: 90 0RF Rx Instructions: dose increase lisdexamfetamine 60 mg capsule 60 mg PO DAILY MDD 50 mg Qty: 30 0RF Rx Instructions: dose increase, please do not fill the 50 mg dose metronidazole [MetroLotion] 0.75 % lotion 1 applic topical QHS Discharge Instructions Instructions: Vulvovaginal yeast infection Additional Instructions: Take 1 Diflucan tablet every Monday for the next 3 weeks. Take 1 prednisone tablet daily for the next 3 days, beginning tomorrow. You can apply a thin layer of the LMX cream on areas of itching and pain in your gluteal cleft, groin area, and perineal body. I would avoid putting this cream directly on your labia and certainly do not put in the inside of your vaginal vault. I would avoid putting any additional powders, creams, or medications on the area until you see improvement. If symptoms do not improve with this care plan, follow-up with your primary care doctor for further management options. You can always return to the ER for any new concerns or sudden changes in your health which you feel require emergency medical attention. Discharge Data Discharge Physician: Lefty Ng [facility] General Date/Time Provider Initiated Documentation: 01/19/25 22:06. [facility] Narrative: The patient is a 44-year-old female, who presents to the emergency department this evening complaining of worsening vaginal, groin, and now gluteal cleft itching and discomfort. The patient was being treated for a yeast infection with oral Diflucan and with topical metronidazole for bacterial vaginitis, which she says was improving until yesterday when rash became much worse. Patient was that it has spread into her gluteal cleft now and is causing her to have uncontrolled itching and burning discomfort. She tried to use Tucks medicated wipes to help improve her symptoms but this made it worse. Patient states that she tried to use topical baby powder on the area but this also seemed to worsen her symptoms. The patient is taking 2 doses of oral Diflucan last week, and began using topical MetroGel 3 days ago which seem to be significantly improving the symptoms until today. Related Data Home Medications Medication Instructions Recorded Confirmed epinephrine 0.3 mg/0.3 mL 0.3 mg (0.3 mL) IM ONCE #1 ea 11/20/20 01/19/25 injection, auto-injector (EpiPen) biotin 2,500 mcg capsule 2,500 mcg PO DAILY 06/03/21 01/19/25 cholecalciferol (vitamin D3) 25 25 mcg PO DAILY 06/03/21 01/19/25 mcg (1,000 unit) capsule Saccharomyces boulardii 250 mg 250 mg PO BID #60 caps 02/08/22 01/19/25 capsule (Daily Probiotic (S. boulardii)) fexofenadine 180 mg tablet 180 mg PO DAILY 09/17/22 01/19/25 albuterol sulfate 90 mcg/actuation 2 puff inhalation 6XD PRN 01/22/24 01/19/25 aerosol inhaler shortness of breath or wheezing #18 grams budesonide-formoterol HFA 160 2 puff inhalation Q12H #10.2 grams 02/24/24 01/19/25 mcg-4.5 mcg/actuation aerosol inhaler (Symbicort) Held on 09/24/24. Instructions: Changed by Provider cetirizine 10 mg capsule (Zyrtec) 10 mg PO DAILY #90 caps 03/21/24 01/19/25 fluticasone propionate 50 2 spray intranasal DAILY #16 grams 06/25/24 01/19/25 mcg/actuation nasal spray,suspension (Allergy Relief (fluticasone)) Held on 01/19/25. Instructions: Pt Stopped/Never Started cephalexin 250 mg capsule 250 mg PO ONCE PRN UTI prophylaxis 09/13/24 01/19/25 #20 caps vitamins with calcium 1 tab PO DAILY #90 tabs 09/27/24 01/19/25 no.72-iron 27 mg-folic acid 1 mg tablet (M- Plus) levothyroxine 137 mcg tablet 137 mcg PO DAILY #90 tabs 10/11/24 01/19/25 omeprazole 20 mg capsule,delayed 20 mg PO DAILY #90 caps 12/12/24 01/19/25 release fluoxetine 40 mg capsule 40 mg PO DAILY #90 caps 12/31/24 01/19/25 lisdexamfetamine 60 mg capsule 60 mg PO DAILY #30 caps 12/31/24 01/19/25 fluconazole 150 mg tablet 150 mg PO Q3D 2 doses #2 tabs 01/13/25 01/19/25 fluconazole 150 mg tablet 150 mg PO ONCE #1 tab 01/17/25 01/19/25 fluconazole 200 mg tablet 200 mg PO ONCE #3 tabs 01/19/25 lidocaine 4 % topical cream (LMX 4) 1 applic topical QID PRN pain #28 01/19/25 grams metronidazole 0.75 % lotion 1 applic topical QHS 01/19/25 01/19/25 (MetroLotion) prednisone 10 mg tablet 10 mg PO DAILY #3 tabs 01/19/25 Previous Rx's Medication Instructions Recorded epinephrine 0.3 mg/0.3 mL 0.3 mg (0.3 mL) IM ONCE #1 ea 11/20/20 injection, auto-injector (EpiPen) Saccharomyces boulardii 250 mg 250 mg PO BID #60 caps 02/08/22 capsule (Daily Probiotic (S. boulardii)) albuterol sulfate 90 mcg/actuation 2 puff inhalation 6XD PRN 01/22/24 aerosol inhaler shortness of breath or wheezing #18 grams budesonide-formoterol HFA 160 2 puff inhalation Q12H #10.2 grams 02/24/24 mcg-4.5 mcg/actuation aerosol inhaler (Symbicort) Held on 09/24/24. Instructions: Changed by Provider cetirizine 10 mg capsule (Zyrtec) 10 mg PO DAILY #90 caps 03/21/24 fluticasone propionate 50 2 spray intranasal DAILY #16 grams 06/25/24 mcg/actuation nasal spray,suspension (Allergy Relief (fluticasone)) Held on 01/19/25. Instructions: Pt Stopped/Never Started cephalexin 250 mg capsule 250 mg PO ONCE PRN UTI prophylaxis 09/13/24 #20 caps vitamins with calcium 1 tab PO DAILY #90 tabs 09/27/24 no.72-iron 27 mg-folic acid 1 mg tablet (M-Willow Plus) levothyroxine 137 mcg tablet 137 mcg PO DAILY #90 tabs 10/11/24 omeprazole 20 mg capsule,delayed 20 mg PO DAILY #90 caps 12/12/24 release fluoxetine 40 mg capsule 40 mg PO DAILY #90 caps 12/31/24 lisdexamfetamine 60 mg capsule 60 mg PO DAILY #30 caps 12/31/24 fluconazole 150 mg tablet 150 mg PO Q3D 2 doses #2 tabs 01/13/25 fluconazole 150 mg tablet 150 mg PO ONCE #1 tab 01/17/25 fluconazole 200 mg tablet 200 mg PO ONCE #3 tabs 01/19/25 lidocaine 4 % topical cream (LMX 4) 1 applic topical QID PRN pain #28 01/19/25 grams prednisone 10 mg tablet 10 mg PO DAILY #3 tabs 01/19/25 Allergies Allergy/AdvReac Type Severity Reaction Status Date / Time poison lula extract (Poison Allergy Mild Anaphylaxsi Verified 01/19/25 21:59 Lula Extract) s hair dye Allergy Intermediate Itching Uncoded 01/19/25 21:59 General Stated Complaint: RashLesion MYRANDA: 4 Exam Const General: cooperative, uncomfortable, no acute distress, anxious and not ill appearing Skin Other: There is a diffuse, blanching erythema in the groin folds, on the external labia, and now throughout the gluteal cleft into its apex posteriorly. There are no significant satellite lesions are obviously present. The vaginal labia are mildly swollen bilaterally. Course Vital Signs Vital signs: Vital Signs Temperature 36.7 C 01/19/25 21:54 Pulse 63 01/19/25 21:54 Respiratory Rate 18 01/19/25 21:54 Blood Pressure 119/75 01/19/25 21:54 Pulse Oximetry 97 01/19/25 21:54 Temperature 36.7 C 01/19/25 21:54 Temperature Source Oral 01/19/25 21:54 Pulse 63 01/19/25 21:54 Respiratory Rate 18 01/19/25 21:54 Blood Pressure 119/75 01/19/25 21:54 Pulse Oximetry 97 01/19/25 21:54 Oxygen Delivery Method Room Air 01/19/25 21:54 Oxygen Flow Rate 0 01/19/25 21:54 Pain Level 4 01/19/25 21:54 Medical Decision Making The patient was seen and examined. She is frustrated, animated, and very uncomfortable with the burning discomfort of the rash. At this point in time would be difficult to determine whether or not this was a significant contact dermatitis versus ongoing candidiasis in the patient. The patient will be given 3 additional weeks of oral Diflucan medication to see if this helps improve her symptoms. I provided her with oral prednisone to see if this would help alleviate any form of contact dermatitis that was causing her to have symptoms. The patient had topical LMX applied here which provided symptomatic relief of her topical burning and itching. The patient will be prescribed topical LMX cream, and a short course of oral prednisone. I also prescribed the patient with a prescription for 3 additional doses of oral Diflucan to use. Encouraged the patient not to place any other medications or topical applications in the area. I have encouraged her to follow-up with her primary care doctor for ongoing management of symptoms and improve his care plan. PFSH All Active Problems (Updated 01/19/25 @ 23:09 by Lefty Ng MD) Candidiasis of genitalia in female (Acute) Candidiasis of anus (Acute) Vocal cord dysfunction (Acute) Bilateral sensorineural hearing loss (Acute) Perimenopausal (Acute) Heat intolerance (Acute) Left ear hearing loss (Acute) Pannus, abdominal (Acute) Obesity (BMI 30-39.9) (Acute) Depression (Chronic) Back pain (Acute) Stress incontinence (Acute) Vulvar itching (Acute) Shortness of breath (Acute) Skin lesion of face (Acute) Contraception management (Acute) Recurrent UTI (Acute) Family history of colon cancer (Acute) Screening for colon cancer (Acute) Chronic GERD (Acute) Family history of secondary colorectal cancer (Acute) Diarrhea (Acute) Prediabetes (Acute) Dysphagia (Acute) 12/2020- Barium swallow negative Bilateral tinnitus (Acute) Carpal tunnel syndrome (Acute) left Decreased hearing (Acute) ADHD (Acute) Hypothyroid (Chronic) Medical History Morbid obesity COVID-19 (~04/08/21) Asthma negative methacholine challenge Strep pharyngitis Asthma Postnasal drip (11/11/13) Breathing difficulty (11/11/13) Allergic rhinitis due to other allergen (12/23/13) Allergic rhinitis (11/11/13) Allergic reaction (12/23/13) Abnormal auditory perception (05/21/15) Surgical History History of colonoscopy with polypectomy (~11/23/21) benign History of open reduction and internal fixation (ORIF) procedure right elbow Family History Mother Hyperlipidemia Father Heart disease Brother Hyperlipidemia Brother , age 39 Depression Son No problems noted. Daughter No problems noted. Maternal Grandfather , age 92 No problems noted. Paternal Grandfather , age 91 Lung cancer Maternal Grandmother Colon cancer Paternal Grandmother , age 89 Heart disease Social History Smoking/Tobacco Use Status: Never Second Hand Exposure: Yes (in the 80s) Smoking risk assessment performed?: Yes Alcohol Intake: current Alcohol Intake frequency: a few times a month Alcohol type: hard liquor Details: 3-4 drinks on typical day Drug use: Never Substance use type: does not use Adopted: No Caregiver/Support person: No Foster care: No Household members: spouse and children Housing: house Communication Needs: Hard of Hearing Do you need help understanding health information?: Never Pets and animals: Yes Pets and animals: dog(s) Sexually active: Yes Do you think of yourself as: straight/heterosexual Current gender identity: female What is your relationship status?: How often do you talk on the phone with friends or family?: three or more times per week How often do you get together with friends or relatives?: once per week How often do you attend yarsanism or protestant services?: decline to answer Do you belong to any clubs or organized social groups?: yes Panel score (0-1 are the most socially isolated patients): 3 What type of physical activity do you participate in: walking and other Details: stairs at work Duration: 30-45 minutes/day Frequency: 3-4 times per week Zabrina/Sikhism: Spiritism Special zabrina needs: No Seatbelt use: always Helmet use: Yes Helmet use: always Drive intox or ride w/intox tow car driver: No Do you feel safe at home: Yes Do you feel safe in your relationship?: Yes PAWSS Have you Been Recently Intoxicated or Drunk Within the Last 30 days?: No Have you Ever Experienced Previous Episodes of Alcohol Withdrawal?: No Have you ever Experienced Withdrawal Seizures?: No Have you ever Experienced Delirium Tremens(DT)s?: No Have you ever undergone Alcohol Rehabilitation Treatment (i.e, inpt ot outpatient treatment programs)?: No Have you ever Experienced Blackouts?: No Have you ever Combined Alcohol with other Downers within the last 90 days?: No Have you ever Combined Alcohol with any other Substance of Abuse during the last 90 days?: No Positive Blood Alcohol level on Presentation? [PCS.BAL]: No Evidence of Increased Autonomic Activity (i.e. HR>120, tremor, sweating, agitation, nausea)?: No Result: 0
[2025-01-19] MEDS: predniSONE 10 MG TAB PO (23:14)
== END 2025-01-19 23:33 | disposition home or self-care (01) ==
PROVIDERS: Emergency Provider Emergency Medicine Emergency Medical Services; PCP Nurse Practitioner Family
DX: B37.89 Other sites of candidiasis (principal); B37.31 Acute candidiasis of vulva and vagina
CPT/HCPCS: 99283 ×2; J7512

== ENCOUNTER 2025-02-19 18:40 | Emergency (ER) | payer OTHER, SELFPAY ==
[2025-02-19 18:42] VITALS: BP 133/90; PULSE 67; RESP 18; TEMP 36.7; O2SAT 97
--- NOTE | 2025-02-19 21:16 | W.ED.GENAD ---
Discharge Plan Disposition Patient Disposition: Home Condition: Good Discharge Details Clinical Impression: Injury of knee, left, Patella-femoral syndrome, Contusion of knee Primary Care Provider: Jama Barrientos ED Provider: Hilda Devine Home Meds and New Rx's Prescriptions: Continued budesonide-formoterol [Symbicort] 160-4.5 mcg/actuation HFA aerosol inhaler 2 puff IH Q12H Qty: 10.2 11RF epinephrine [EpiPen] 0.3 mg/0.3 mL auto-injector 0.3 mg IM ONCE Qty: 1 0RF cholecalciferol (vitamin D3) 25 mcg (1,000 unit) capsule 25 mcg PO DAILY biotin 2,500 mcg capsule 2,500 mcg PO DAILY Saccharomyces boulardii [Daily Probiotic (S. boulardii)] 250 mg capsule 250 mg PO BID Qty: 60 0RF Rx Instructions: Take 1 capsule every 12 hours x 30days fexofenadine 180 mg tablet 180 mg PO DAILY albuterol sulfate 90 mcg/actuation HFA aerosol inhaler 2 puff IH 6XD PRN (Reason: shortness of breath or wheezing) Qty: 18 0RF Zyrtec 10 mg capsule 10 mg PO DAILY Qty: 90 4RF fluticasone propionate [Allergy Relief (fluticasone)] 50 mcg/actuation spray,suspension 2 spray intranasal DAILY Qty: 16 6RF Rx Instructions: administer into each nostril cephalexin 250 mg capsule 250 mg PO ONCE PRN (Reason: UTI prophylaxis) Qty: 20 1RF Rx Instructions: take immediately prior to or after sexual activity to prevent UTI M- Plus 27 mg iron- 1 mg tablet 1 tab PO DAILY Qty: 90 4RF levothyroxine 137 mcg tablet 137 mcg PO DAILY Qty: 90 3RF Rx Instructions: 137 mcg orally daily; omeprazole 20 mg capsule,delayed release(DR/EC) 20 mg PO DAILY Qty: 90 4RF fluoxetine 40 mg capsule 40 mg PO DAILY Qty: 90 0RF Rx Instructions: dose increase lisdexamfetamine 60 mg capsule 60 mg PO DAILY MDD 50 mg Qty: 30 0RF Rx Instructions: dose increase, please do not fill the 50 mg dose metronidazole [MetroLotion] 0.75 % lotion 1 applic topical QHS lidocaine [LMX 4] 4 % cream 1 applic topical QID PRN (Reason: pain) Qty: 28 0RF Discharge Instructions Instructions: Internal Derangement of the Knee Additional Instructions: As we discussed, you have no evidence to suggest a fracture. However, your patella, or kneecap, was off to the side which is often seen in women. This may have caused an increase in your discomfort and swelling in the knee which is causing her persistent symptoms. Encourage you to try and strengthen the inner part of your thighs. This can also be accomplished with physical therapy, referral to physical therapy is attached. I also encourage you to follow-up with orthopedics for reevaluation. Referral has been placed please call to call the number listed below to schedule follow-up appointment. Please continue to encourage rest, ice, elevation. Tylenol and/or Ibuprofen as needed for discomfort. Please take as directed on the packaging. You may weight-bear as tolerated, if this becomes more uncomfortable please feel free to use crutches to help with ambulation. If you develop any new or worsening symptoms please seek care urgently once again. Stand Alone Forms: Physical Therapy Referral, Portal Information Referrals: Zeyad Melo MD [ [facility] STAFF PHYSICIAN, Orthopaedic Surgical] Discharge Data Discharge Date/Time-TO BE ENTERED AT DEPARTURE: 02/20/25 00:46 HPI General Date/Time Provider Initiated Documentation: 02/19/25 21:16. Limitations to Documentation: no limitations. Information obtained by: patient and RN notes reviewed. History of Present Illness 44 year old F presents to the emergency department with the chief complaint of left knee pain, described as moderate, and is localized to the left and lower extremity. Patient reports radiation to (can radiate into thigh with specific movements). Patient started experiencing this week(s) (6) and it has been constant. Immobilization improves symptom(s), Movement worsens symptoms . Patient notes no other symptoms.. Patient did receive the following treatments prior to arrival, none Related Data Home Medications ?Medication ?Instructions ?Recorded ?Confirmed epinephrine 0.3 mg/0.3 mL 0.3 mg (0.3 mL) IM ONCE #1 ea 11/20/20 02/19/25 injection, auto-injector (EpiPen) biotin 2,500 mcg capsule 2,500 mcg PO DAILY 06/03/21 02/19/25 cholecalciferol (vitamin D3) 25 25 mcg PO DAILY 06/03/21 02/19/25 mcg (1,000 unit) capsule Saccharomyces boulardii 250 mg 250 mg PO BID #60 caps 02/08/22 02/19/25 capsule (Daily Probiotic (S. boulardii)) fexofenadine 180 mg tablet 180 mg PO DAILY 09/17/22 02/19/25 albuterol sulfate 90 mcg/actuation 2 puff inhalation 6XD PRN 01/22/24 02/19/25 aerosol inhaler shortness of breath or wheezing #18 grams budesonide-formoterol HFA 160 2 puff inhalation Q12H #10.2 grams 02/24/24 02/19/25 mcg-4.5 mcg/actuation aerosol inhaler (Symbicort) cetirizine 10 mg capsule (Zyrtec) 10 mg PO DAILY #90 caps 03/21/24 02/19/25 fluticasone propionate 50 2 spray intranasal DAILY #16 grams 06/25/24 02/19/25 mcg/actuation nasal spray,suspension (Allergy Relief (fluticasone)) cephalexin 250 mg capsule 250 mg PO ONCE PRN UTI prophylaxis 09/13/24 02/19/25 #20 caps vitamins with calcium 1 tab PO DAILY #90 tabs 09/27/24 02/19/25 no.72-iron 27 mg-folic acid 1 mg tablet (M- Plus) levothyroxine 137 mcg tablet 137 mcg PO DAILY #90 tabs 10/11/24 02/19/25 omeprazole 20 mg capsule,delayed 20 mg PO DAILY #90 caps 12/12/24 02/19/25 release fluoxetine 40 mg capsule 40 mg PO DAILY #90 caps 12/31/24 02/19/25 lidocaine 4 % topical cream (LMX 4) 1 applic topical QID PRN pain #28 01/19/25 02/19/25 grams metronidazole 0.75 % lotion 1 applic topical QHS 01/19/25 02/19/25 (MetroLotion) lisdexamfetamine 60 mg capsule 60 mg PO DAILY #30 caps 02/14/25 02/19/25 Previous Rx's ?Medication ?Instructions ?Recorded epinephrine 0.3 mg/0.3 mL 0.3 mg (0.3 mL) IM ONCE #1 ea 11/20/20 injection, auto-injector (EpiPen) Saccharomyces boulardii 250 mg 250 mg PO BID #60 caps 02/08/22 capsule (Daily Probiotic (S. boulardii)) albuterol sulfate 90 mcg/actuation 2 puff inhalation 6XD PRN 01/22/24 aerosol inhaler shortness of breath or wheezing #18 grams budesonide-formoterol HFA 160 2 puff inhalation Q12H #10.2 grams 02/24/24 mcg-4.5 mcg/actuation aerosol inhaler (Symbicort) cetirizine 10 mg capsule (Zyrtec) 10 mg PO DAILY #90 caps 03/21/24 fluticasone propionate 50 2 spray intranasal DAILY #16 grams 06/25/24 mcg/actuation nasal spray,suspension (Allergy Relief (fluticasone)) cephalexin 250 mg capsule 250 mg PO ONCE PRN UTI prophylaxis 09/13/24 #20 caps vitamins with calcium 1 tab PO DAILY #90 tabs 09/27/24 no.72-iron 27 mg-folic acid 1 mg tablet (M-Willow Plus) levothyroxine 137 mcg tablet 137 mcg PO DAILY #90 tabs 10/11/24 omeprazole 20 mg capsule,delayed 20 mg PO DAILY #90 caps 12/12/24 release fluoxetine 40 mg capsule 40 mg PO DAILY #90 caps 12/31/24 lidocaine 4 % topical cream (LMX 4) 1 applic topical QID PRN pain #28 01/19/25 grams lisdexamfetamine 60 mg capsule 60 mg PO DAILY #30 caps 02/14/25 Allergies Allergy/AdvReac Type Severity Reaction Status Date / Time poison lula extract (Poison Allergy Mild Anaphylaxsi Verified 02/19/25 18:46 Lula Extract) s hair dye Allergy Intermediate Itching Uncoded 02/19/25 18:46 General Stated Complaint: Orthopedic MYRANDA: 4 Review of Systems Constitutional Constitutional: Reports as per HPI, Denies chills, Denies fever(s), Denies headache(s) and Denies weakness ENT Ears, Nose, Mouth, and Throat: Denies headache(s) Cardiovascular Cardiovascular: Reports as per HPI Respiratory Respiratory: Reports as per HPI and Denies cough Musculoskeletal Musculoskeletal: Reports as per HPI and Denies tingling Integumentary/Breasts Skin/Breast: Reports as per HPI, Denies rash and Denies wounds Neurologic Neurologic: Reports as per HPI, Denies headache(s), Denies tingling, Denies paresthesias and Denies weakness Exam Const General: cooperative, healthy appearing, comfortable, no acute distress, well developed and well groomed Nutritional Appearance: well nourished and overweight Orientation: alert and awake Resp Effort & Inspection: normal respiratory effort, able to speak in complete sentences and no respiratory distress Cardio Rate: regular rate Rhythm: regular rhythm Skin General skin exam: no rashes or lesions noted Lesions: no lesions Rashes: no rashes Trauma: no lacerations or abrasions Neuro General: patient alert and patient awake Cognition: normal cognition Speech: speech normal Motor: muscle tone normal throughout Sensory Exam: no sensory deficits noted Extrem Knee images:  1. area of ecchymosis and swelilng. No erythema, warmth, break in the skin, drainage. Full ROM. Non-tender with varus/valgus stress testing and anterior/posterior drawer testing. Mild joint line tenderness laterally. No pain with palpation of the patella, able to straight leg raise. Calf is soft, non-tender, no swelling, no palpable cord. 2+ distal pulses, full ROM and strength of ankle. Course Vital Signs Vital signs: Vital Signs Temperature 36.7 C 02/19/25 18:42 Pulse 67 02/19/25 18:42 Respiratory Rate 18 02/19/25 18:42 Blood Pressure 133/90 02/19/25 18:42 Pulse Oximetry 97 02/19/25 18:42 Temperature 36.7 C 02/19/25 18:42 Temperature Source Temporal Artery Scan 02/19/25 18:42 Pulse 67 02/19/25 18:42 Respiratory Rate 18 02/19/25 18:42 Blood Pressure 133/90 02/19/25 18:42 Pulse Oximetry 97 02/19/25 18:42 Oxygen Delivery Method Room Air 02/19/25 18:42 Oxygen Flow Rate 0 02/19/25 18:42 Medical Decision Making Patient is a 44-year-old female presenting today with chief complaint of left knee injury. She reports that 6 weeks ago, while at work, she fell outside landing directly on the anterior aspect of both knees. She reports the right knee sustained more than abrasion to the left is been more consistently uncomfortable. Is particularly been problematic for the past few days but now she is ambulating with an antalgic gait. She reports that the pain is fairly diffuse, initially was more anterior and she continues to have ecchymosis and swelling in that area, it is also starting to go posteriorly. Feels like the knee is slightly unstable did try a brace without success. On exam, patient appears nontoxic. She is resting comfortably no acute distress. She has full range of motion of the knee. She is 2+ distal pulses. Good range of motion of the ankle. Calf is soft and nontender. No pain with palpation about the posterior aspect of the knee. She is ligamentously intact with varus and valgus stress testing as well as with anterior posterior drawer testing. She is able to straight leg raise. She has some mild discomfort with palpation over the patella but no significant pain in this area or findings of deformity. She does feel slightly swollen posteriorly, potentially Payne's cyst. With no swelling or calf pain, as well as no palpable cord, do not see indication at this point for a DVT. Pain is much more mechanical which leads me to believe this is more associated with her trauma. She does have a small effusion which could be increasing a Payne's cyst. No indication of dislocation or infection. Will obtain an x-ray for further evaluation. Will give Tylenol and ibuprofen to help with discomfort. X-rays reviewed by myself as well as the radiologist. Partial lateral dislocation/subluxation of the patella in the lateral aspect of the posterior surface abutting the anterior margin of the lateral femoral condyle. This certainly could explain why the patient had such an increase in discomfort when she fell directly on the anterior aspect of the knee. There is also question ligamentous injury. However, patient had no pain with ligamentous testing. I find this less likely. Discussed these findings with the patient. We did discuss strengthening the medial aspect of her leg and will refer to physical therapy. Will also have her follow-up with orthopedics. Will place in a hinged knee brace. Encouraged rest, ice, elevation. Tylenol and ibuprofen as needed for discomfort. After ambulating with brace, she continues to have discomfort. Will give crutches. she is aware that she continue with weight bearing as tolerated. Will refer to orthopedics and PT. Discussed strengthening of the inner thigh. All of her questions and concerns were addressed, she is in agreement with this plan. PFSH All Active Problems (Updated 02/19/25 @ 23:33 by YOLANDA Brice) Contusion of knee (Acute) Patella-femoral syndrome (Acute) Injury of knee, left (Acute) Vocal cord dysfunction (Acute) Bilateral sensorineural hearing loss (Acute) Perimenopausal (Acute) Heat intolerance (Acute) Left ear hearing loss (Acute) Pannus, abdominal (Acute) Obesity (BMI 30-39.9) (Acute) Depression (Chronic) Back pain (Acute) Stress incontinence (Acute) Vulvar itching (Acute) Shortness of breath (Acute) Skin lesion of face (Acute) Contraception management (Acute) Recurrent UTI (Acute) Family history of colon cancer (Acute) Screening for colon cancer (Acute) Chronic GERD (Acute) Family history of secondary colorectal cancer (Acute) Diarrhea (Acute) Prediabetes (Acute) Dysphagia (Acute) 12/2020- Barium swallow negative Bilateral tinnitus (Acute) Carpal tunnel syndrome (Acute) left Decreased hearing (Acute) ADHD (Acute) Hypothyroid (Chronic) Medical History Morbid obesity COVID-19 (~04/08/21) Asthma negative methacholine challenge Strep pharyngitis Asthma Postnasal drip (11/11/13) Breathing difficulty (11/11/13) Allergic rhinitis due to other allergen (12/23/13) Allergic rhinitis (11/11/13) Allergic reaction (12/23/13) Abnormal auditory perception (05/21/15) Surgical History History of colonoscopy with polypectomy (~11/23/21) benign History of open reduction and internal fixation (ORIF) procedure right elbow Family History Mother Hyperlipidemia Father Heart disease Brother Hyperlipidemia Brother , age 39 Depression Son No problems noted. Daughter No problems noted. Maternal Grandfather , age 92 No problems noted. Paternal Grandfather , age 91 Lung cancer Maternal Grandmother Colon cancer Paternal Grandmother , age 89 Heart disease Social History Smoking/Tobacco Use Status: Never Second Hand Exposure: Yes (in the 80s) Smoking risk assessment performed?: Yes Alcohol Intake: current Alcohol Intake frequency: a few times a month Alcohol type: hard liquor Details: 3-4 drinks on typical day Drug use: Never Substance use type: does not use Adopted: No Caregiver/Support person: No Foster care: No Household members: spouse and children Housing: house Communication Needs: Hard of Hearing Do you need help understanding health information?: Never Pets and animals: Yes Pets and animals: dog(s) Sexually active: Yes Do you think of yourself as: straight/heterosexual Current gender identity: female What is your relationship status?: How often do you talk on the phone with friends or family?: three or more times per week How often do you get together with friends or relatives?: once per week How often do you attend adventism or zoroastrianism services?: decline to answer Do you belong to any clubs or organized social groups?: yes Panel score (0-1 are the most socially isolated patients): 3 What type of physical activity do you participate in: walking and other Details: stairs at work Duration: 30-45 minutes/day Frequency: 3-4 times per week Zabrina/Orthodoxy: Adventism Special zabrina needs: No Seatbelt use: always Helmet use: Yes Helmet use: always Drive intox or ride w/intox 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
--- NOTE | 2025-02-19 21:30 | DI.RAD_ITS ---
Exam(s) XR KNEE LT 4V AP,LAT,MARGIE,PAT EXAM: XR KNEE LT 4V AP,LAT,MARGIE,PAT CLINICAL HISTORY: fall on knee. TECHNIQUE: 2D digital imaging was performed. COMPARISON: No exams were available for comparison FINDINGS: Four views No evidence of acute fracture but there is a joint effusion noted. There is advanced narrowing of the lateral aspect of the patellofemoral compartment and slight lateral deviation of the patella. Appears degenerative. There are no osteochondral defects. There are mild to moderate degenerative changes in the medial compartment also evident. Lateral compartment exhibits normal height. No chondrocalcinosis. There is a degenerative subarticular cyst in the mid-posterior tibial plateau. IMPRESSION: Degenerative changes in the medial patellofemoral compartments. Joint effusion. DATA REPOSITORY: RADIATION DOSE DELIVERED:
[2025-02-19] MEDS: Acetaminophen 500 MG TAB 1000 MG PO (21:49)
[2025-02-19] MEDS: Ibuprofen 800 MG TAB PO (21:49)
--- NOTE | 2025-02-19 22:32 | DI.VRAD_ITS ---
PROCEDURE INFORMATION: Exam: XR Left Knee Exam date and time: 02/19/2025 9:52 PM Age: 44 years old Clinical indication: Other: Fall on knee TECHNIQUE: Imaging protocol: Radiologic exam of the left knee. Views: 4 or more views. COMPARISON: No relevant prior studies available. FINDINGS: Bones/joints: Partial lateral dislocation/subluxation of the patella such that the lateral aspect of the posterior surface abuts the anterior margin of the lateral femoral condyle and there is widening of the medial patellofemoral joint space up to 1 cm. Based on the 2 different frontal projections, 1 of which may be oblique, the tibia and femur maybe slightly offset with respect to each other though this may be projectional. Soft tissue/ligamentous injury possible. No acute fracture. No evidence of knee joint effusion. Soft tissues: See Bones/joints finding. IMPRESSION: 1. Partial lateral dislocation/subluxation of the patella such that the lateral aspect of the posterior surface abuts the anterior margin of the lateral femoral condyle and there is widening of the medial patellofemoral joint space up to 1 cm. 2. Based on the 2 different frontal projections, 1 of which may be oblique, the tibia and femur maybe slightly offset with respect to each other though this may be projectional. Soft tissue/ligamentous injury possible. 3. No acute fracture. 4. No evidence of knee joint effusion. Dictated and Authenticated by: tSefano Yuan MD. Orderin Nilson Stevens MD
[2025-02-19 22:50] VITALS: BP 127/67; PULSE 68; O2SAT 97
--- NOTE | 2025-02-20 12:37 | NUR.NOTE ---
Accessed patients chart to get providers name for [facility] form
== END 2025-02-20 00:46 | disposition home or self-care (01) ==
PROVIDERS: Emergency Provider Physician Assistant; PCP Nurse Practitioner Family
DX: M25.562 Pain in left knee (principal); Z96.652 Presence of left artificial knee joint
CPT/HCPCS: 99283; 73564